=== PATIENT | male | born 2005 | race Caucasian/White ===

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

== ENCOUNTER 2023-02-20 12:10 | Inpatient (IN) | payer OTHER, SELFPAY ==
[2023-02-20] VITALS (43 sets, daily range): BP systolic 84–122; BP diastolic 47–87; PULSE 76–132; RESP 12–38; TEMP 36.4–37.1; O2SAT 95–100; BMI 22.2
--- NOTE | ~2023-02-20 | US_ITS ---
US abdomen limited DATE: 02/20/2023 16:49 INDICATION: Elevated liver function tests. Pericholecystic fluid on CT examination TECHNIQUE: Real-time imaging of liver, pancreas, gallbladder COMPARISON: 02/20/2023 CT chest abdomen pelvis FINDINGS: No hepatic space-occupying mass lesion is evident. Normal hepatopedal portal venous flow di rection. No pancreatic mass lesion. The common bile duct measures 3 mm, within normal range. There is mild pericholecystic fluid collection. The gallbladder wall measures borderline thickness. No gallstones are detected. Negative sonographic Caballero's sign. IMPRESSION: Mild pericholecystic fluid collection and borderline thickening of gallbladder wall If further evaluation to exclude acute cholecystitis is needed, consider radionuclide hepatobiliary s can Reviewed, dictated and finalized at [facility]. Reviewed, dictated and finalized at location [facility]. IMPRESSION: Mild pericholecystic fluid collection and borderline thickening of gallbladder wall If further evaluation to exclude acute cholecystitis is needed, consider radion uclide hepatobiliary scan
--- NOTE | ~2023-02-20 | CT_ITS ---
EXAMINATION: CT brain wo con DATE: 02/20/2023 14:38 INDICATION: Mental status change TECHNIQUE: Computed tomography (CT) of the head was performed without intravenous contrast. The mA wa s adjusted according to patient size. Iterative reconstruction technique was employed. Exam dose: 68 1.00 mGy-cm total exam DLP. COMPARISON: None FINDINGS: Examination is mildly limited by motion artifact. No intracranial mass lesion or hemorrhage or cerebrovascular accident or encephalomalacia is noted. N ormal castro-white matter differentiation. No midline shift or mass effect. Normal ventricular size. No subdural or epidural hematoma is detected. No fracture or bone destruction of the cranial vault. Mild soft tissue thickening the ethmoid air cells and minimal focal anterior right sphenoid sinus muc operiosteal thickening. Included paranasal sinuses and mastoid air cells are otherwise normally devel oped and aerated. IMPRESSION: No significant abnormality is detected Reviewed, dictated and finalized at [facility]. Reviewed, dictated and finalized at location [facility].
--- NOTE | ~2023-02-20 | CT_ITS ---
EXAMINATION: CT chest abdomen pelvis w con DATE: 02/20/2023 14:38 INDICATION: Sepsis TECHNIQUE: Computed tomography (CT) of the chest, abdomen and pelvis was performed with 100 CC Omnipa que 350 intravenous contrast. Automated exposure control and iterative reconstruction technique were employed. Exam dose: 939.07 mGy-cm total exam DLP. COMPARISON: None FINDINGS: Examination is limited by motion artifact. Bilateral calcified pulmonary granulomas and bilateral calcified hilar and mediastinal lymph nodes, c onsistent with old granulomatous disease. No pulmonary infiltrate or consolidation is evident. Cardiomegaly. No pericardial or pleural effusion. No hilar or mediastinal mass lesion or lymphadenopathy. Mild right gynecomastia is suggested. There is pericholecystic fluid. Consider gallbladder ultrasound examination. No bile duct or pancreatic duct dilatation is detected. Hepatic steatosis. No hepatic, splenic, pancreatic, and adrenal or renal space-occupying mass lesion is detected. No urinary tract calculus or hydroureteronephrosis. Numerous fluid containing small bowel segments with air-fluid levels. No small or large bowel dilatat ion or obstruction is evident. No pneumatosis. No intraperitoneal free air. There is a prominent amou nt of fecal material in the rectum and colon. Normal appendix. No suspicious osteolytic or osteoblastic lesions. IMPRESSION: Pericholecystic fluid; consider gallbladder ultrasound for further evaluation Hepatic steatosis Numerous small bowel air-fluid levels which may be due to adynamic ileus or enteritis Normal appendix Cardiomegaly Mild right gynecomastia is suggested Old pulmonary granulomatous disease Reviewed, dictated and finalized at [facility]. Reviewed, dictated and finalized at location [facility]. 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
--- NOTE | 2023-02-20 12:37 | ED.AMS ---
HPI - Altered Mental Status General Chief Complaint: Altered Mental Status Stated Complaint: unresponsive episode Time Seen by Provider: 02/20/23 12:36 History of Present Illness HPI narrative: History limited due to mental status, provided by mother at bedside. Patient is a 17-year-old male with history of polysubstance abuse including fentanyl, cocaine, marijuana use here with altered mental status. Mother states that she went to wake the patient up this morning and he would not wake up. She then administered intranasal Narcan with no improvement of his mental status. EMS was called and they administered additional Narcan with some mild improvement of mental status. She notes that prior to the administration of Narcan he was having sonorous respirations and this seemed to have improved after Narcan administration and he began moaning more. she does note that he had an inpatient rehab stent earlier this year primarily for opiates and they have been contacted for guarding him returning however he has not been interested up until this point. She does note that near him in the room they did find a large aerosolized with cream canister. Patient provides no history. Related Data Allergies Allergy/AdvReac Type Severity Reaction Status Date / Time No Known Allergies Allergy Verified 04/03/21 14:40 Review of Systems Review of Systems: ROS unobtainable: Yes unobtainable due to mental status PMFSH Social History Social History Smoking status: Never smoker Alcohol intake: never Exam Narrative: GENERAL: Ill appearing, moaning with exam HEAD: Normocephalic, atraumatic. EYES: PERRLA, 4mm, equal, reactive. ENT: Nares clear. Mucous membranes moist. NECK: Supple. CHEST: Clear to auscultation. Tachypneic. HEART: Regular rate and rhythm. Normal peripheral pulses. ABDOMEN: Soft, nontender, nondistended, moaning with palpation throughout abdomen. EXTREMITIES: Atraumatic, No edema. SKIN: Warm, dry, no rash. NEURO: Moaning, moves bilateral upper and lower extremities equally, no eye deviation. Will not participate in neurologic exam Course Course Emergency Course: Chart review performed. Patient here after unresponsive episode, given narcan by EMS. Last visit in our system was a PCP visit in 2020 noting history of ADHD, poor medication compliance. Triage vitals show tachycardic and tachypneic. Patient seen evaluated, he is obtunded, moans on exam however provides no history and does not participate neurologic exam. No focal deficits are appreciated as he moves all extremities equally. Will do a tox workup, CT head, AMS workup including ABG, IV fluids ordered. Will monitor. Protecting airway at this point with no respiratory distress. Patient more alert, conversive. Glucose returned in the 40s, attempted oral correction with juice however he vomited. Will give zofran and dextrose IV. Lab work and imaging reviewed. WBC elevated at 18.6. Anticipate this is most likely reactive however will add on blood cultures. CTs pending to look for possible source. VBG grossly normal. Creatinine elevated at 1.7, normal potassium. ALT elevated at 1820, AST 2279, bilirubin normal. Acetaminophen level normal. Troponin elevated at 1.980. UDS positive for cocaine and cannabinoids. Will order ASA. Awaiting imaging prior to initiating any possible heparinization. CT head negative. CT chest, abdomen, pelvis shows pericholycistic fluid. Will do RUQ ultrasound given elevated LFTs and WBC count. Dose of zosyn ordered. Patient more alert on exam, states he used fentanyl, cocaine, marijuana all over the last day. He denies any chest pain. Does have some diffuse abdominal tenderness on exam. Troponin uptrending, will discuss case with cardiology and start on heparin. Spoke with Dr. Willett, no additional recommendations. US non diagnostic for cholecystitis, if continued concern, can do HIDA. Spoke
--- NOTE | 2023-02-20 12:45 | ECG_ITS ---
Measurements Intervals [place] Rate: 119 P: 69 VA: 162 QRS: 80 QRSD: 95 T: 52 QT: 306 QTc: 431 Interpretive Statements SINUS TACHYCARDIA POSSIBLE RIGHT VENTRICULAR CONDUCTION DELAY [RSR (QR) IN V1/V2] ABNORMAL RHYTHM ECG NO PREVIOUS ECG AVAILABLE FOR COMPARISON Electronically Signed On 02-20-2023 13:36:34 CDT by Arden Harding MD
[2023-02-20] MEDS: SODIUM CHLORIDE 0.9% IV 1,000 ML 999 ML IV CONT ×3 (13:08→18:23)
[2023-02-20 13:17] LABS: Fractional Inspired Oxygen 21 %; HCO3 VBG 20.4 mEq/l (24.0-30.0); PCO2 VBG 41.7 mmHg (42.0-48.0); PO2 VBG 47.9 mmHg (35.0-45.0); pH VBG 7.308 (7.300-7.400)
[2023-02-20 13:19] LABS: Device ROOM AIR
[2023-02-20 13:23] LABS: Basophils Absolute Auto 0.1 K/mm3 (0.0-0.1); Basophils Percent Auto 0.3 % (0.2-1.2); Eosinophils Percent Auto 0.2 % (0-4.4); Hematocrit 42.7 % (42.0-52.0); Hemoglobin 14.2 g/dL (14.0-18.0); Immature Granulocyte Percent A 1.1 % (0-0.5); Lymphocytes Absolute Auto 1.16 K/mm3 (0.9-3.2); Lymphocytes Percent Auto 6.2 % (18.3-44.2); Mean Corpuscular HGB Conc 33.3 g/dl (32-36); Mean Corpuscular Hemoglobin 31.3 pg (26-34); Mean Corpuscular Volume 94.1 fl (80-100); Monocytes Absolute Auto 1.7 K/mm3 (0.1-0.6); Monocytes Percent Auto 8.9 % (2.6-8.5); Neutrophils Absolute Auto 15.5 K/mm3 (1.3-6.7); Neutrophils Percent Auto 83.3 % (45.5-73.1); Platelet Count Result 334 k/mm3 (150-375); Red Blood Count 4.54 M/mm3 (4.6-6.20); Red Cell Distribution Width 12.7 % (11.5-14.5); White Blood Count 18.6 K/mm3 (4.5-10.0)
[2023-02-20 13:32] LABS: Acetaminophen < 10 ug/mL (10-30); Ethanol < 10 mg/dL (<10); Salicylate < 1.0 mg/dL (2-20)
[2023-02-20 13:35] LABS: Albumin Level 4.6 g/dL (3.7-5.6); Alkaline Phosphatase 108 U/L (58-237); Anion Gap 13 mmol/L (8-16); Bilirubin,Total 0.6 mg/dL (0.2-1.3); Blood Urea Nitrogen 15 mg/dL (8-21); Calcium 8.4 mg/dL (8.9-10.7); Carbon Dioxide 23 mmol/L (22-30); Chloride 103 mmol/L (98-107); Creatine Kinase 270 U/L (55-170); Estimated Glomerular Filt Rate 52; Glucose 47 mg/dL (65-110); Potassium 4.2 mmol/L (3.4-5.0); Sodium 139 mmol/L (134-143)
[2023-02-20 13:39] LABS: INR 1.3; Prothrombin Time 16.6 Seconds (11.1-14.7)
[2023-02-20 13:48] LABS: Amphetamine Screen Urine Negative (Negative); Barbiturate Screen Urine Negative (Negative); Benzodiazepines Screen Urine Negative (Negative); Cannabinoid Screen Urine Positive (Negative); Cocaine Screen Urine Positive (Negative); Methadone Screen Urine Negative (Negative); Opiate Screen Urine Negative (Negative); Phencyclidine Screen Urine Negative (Negative)
[2023-02-20] MEDS: DEXTROSE 50% 25 GM/50 ML SYRINGE IV PUSH (13:49)
[2023-02-20] MEDS: ONDANSETRON INJ 4 MG/2 ML VIAL IV PUSH (13:50)
--- NOTE | 2023-02-20 13:50 | ECG_ITS ---
Measurements Intervals [place] Rate: 102 P: 70 UT: 148 QRS: 72 QRSD: 100 T: 40 QT: 337 QTc: 440 Interpretive Statements SINUS TACHYCARDIA OTHERWISE NORMAL ELECTROCARDIOGRAM COMPARED TO ECG 02/20/2023 12:17:40 NO SIGNIFICANT CHANGES Electronically Signed On 02-21-2023 8:45:21 CDT by Ke Willett M.D.
[2023-02-20 13:54] LABS: Alanine Aminotransferase 1820 U/L (6-50)
[2023-02-20 14:03] LABS: Appearance Urine Clear (Clear); Bacteria Urine None Seen /hpf; Bilirubin Urine Negative (Negative); Blood Urine 2+ (Negative); Color Urine Yellow (Yellow); Glucose Urine UA Negative (Negative); Ketones Urine Negative (Negative); Leukocyte Esterase Ur Negative LEU/UL (Negative); Need Manual Microscopic Reviewed; Nitrate Urine Negative (Negative); Protein Urine 2+ mg/dL (Negative); RBC Urine 0-2 /hpf (0-2); Specific Grav Ur 1.008 (1.001-1.035); Squamous Epithelial Cell Urine Occasional /hpf (Few); pH Urine 6.5 (5.0-9.0)
[2023-02-20 14:06] LABS: Aspartate Amino Transferase 2279 U/L (17-59)
[2023-02-20 14:06] LABS: Add Urine Microscopic? YES
[2023-02-20 14:55] LABS: Glucose Point of Care 130 mg/dl (65-105)
[2023-02-20] MEDS: PIPERACILLIN/TAZ 4.5G/NS 100ML 4.5 GM/100 ML BAG IVPB (16:44)
[2023-02-20 16:49] LABS: Glucose Point of Care 96 mg/dl (65-105)
[2023-02-20] MEDS: HEPARIN SODIUM 5,000 UNITS/ML VIAL 4000 UNITS IV PUSH (17:02)
[2023-02-20] MEDS: HEPARIN SOD/D5W 100 UNITS/ML 25,000 UNITS/250 ML BAG 9 UNITS IV CONT (17:03)
[2023-02-20 17:11] LABS: Hematocrit 45.2 % (42.0-52.0); Hemoglobin 14.9 g/dL (14.0-18.0); Mean Corpuscular Hemoglobin 31.2 pg (26-34); Mean Corpuscular Volume 94.8 fl (80-100); Mean Platelet Volume 10.1 fl (7.4-10.4); Platelet Count Result 305 k/mm3 (150-375); Red Blood Count 4.77 M/mm3 (4.6-6.20); Red Cell Distribution Width 12.8 % (11.5-14.5); White Blood Count 20.3 K/mm3 (4.5-10.0)
[2023-02-20 17:21] LABS: INR 1.4; Prothrombin Time 17.7 Seconds (11.1-14.7)
[2023-02-20 17:22] LABS: Partial Thromboplastin Time 28.4 SECONDS (22.3-36.8)
[2023-02-20 17:43] LABS: Lymphocytes Absolute Manual 2.03 K/mm3 (1.1-4.5); Monocytes Absolute Manual 1.62 K/mm3 (0.1-0.90); Monocytes Percent Manual 8 % (3-9); Neutrophils Percent Manual 82 % (46-73); Schistocytes None Seen (NORMAL); Total Cells Counted 100
[2023-02-20 17:43] LABS: Hepatitis B Surface Antigen Negative (Negative)
[2023-02-20 17:44] LABS: Platelet Estimate Adequate (Adequate)
[2023-02-20 17:48] LABS: HAV RESULT Negative (Negative); Hepatitis B Core IgM Result Negative (Negative)
[2023-02-20 18:00] LABS: Hepatitis C Virus Antibody Negative (Negative)
--- NOTE | 2023-02-20 20:44 | PM.IMHP ---
H&P: HPI History of Present Illness Date/Time: 02/20/23 20:44 Chief Complaint: OD Narrative: THIS IS A 17-YEAR-OLD MALE WITH PAST MEDICAL HISTORY SIGNIFICANT FOR COCAINE ABUSE, PATIENT WAS EXPERIMENTING WITH FENTANYL FOR THE 1ST TIME AND WAS FOUND DOWN BROUGHT TO THE EMERGENCY ROOM. AT THE TIME OF MY VISIT PATIENT WAS AWAKE ALERT HOWEVER WAS UNABLE TO PROVIDE ANY HISTORY IN REGARDS TO THESE EVENT HE WAS COMPLETELY OUT HAS NO RECOLLECTION REMEMBERS USING THE FENTANYL FOR 1ST TIME. ACCORDING TO RECORDS FROM THE EMERGENCY ROOM MOTHER FOUND HIM AND TRIED INTRANASAL NARCAN WITH NO MUCH RESPONSE EMS WAS CALLED AND 2ND DOSE OF NARCAN SHOWED MORE IMPROVEMENT PATIENT WAS BROUGHT TO THE EMERGENCY ROOM. PRELIMINARY WORKUP WAS SIGNIFICANT FOR ELEVATED LIVER ENZYMES, ELEVATED TROPONINS. EXAMINATION: CT brain wo con DATE: 02/20/2023 14:38 INDICATION: Mental status change TECHNIQUE: Computed tomography (CT) of the head was performed without intravenous contrast. The mA was adjusted according to patient size. Iterative reconstruction technique was employed. Exam dose:? 681.00 mGy-cm total exam DLP.? COMPARISON: None FINDINGS: Examination is mildly limited by motion artifact. No intracranial mass lesion or hemorrhage or cerebrovascular accident or encephalomalacia is noted. Normal castro-white matter differentiation. No midline shift or mass effect. Normal ventricular size. No subdural or epidural hematoma is detected. No fracture or bone destruction of the cranial vault. Mild soft tissue thickening the ethmoid air cells and minimal focal anterior right sphenoid sinus mucoperiosteal thickening. Included paranasal sinuses and mastoid air cells are otherwise normally developed and aerated. IMPRESSION:? No significant abnormality is detected EXAMINATION: CT chest abdomen pelvis w con DATE: 02/20/2023 14:38 INDICATION: Sepsis TECHNIQUE: Computed tomography (CT) of the chest, abdomen and pelvis was performed with 100 CC Omnipaque 350 intravenous contrast. Automated exposure control and iterative reconstruction technique were employed. Exam dose:? 939.07 mGy-cm total exam DLP.? COMPARISON: None FINDINGS: Examination is limited by motion artifact. Bilateral calcified pulmonary granulomas and bilateral calcified hilar and mediastinal lymph nodes, consistent with old granulomatous disease. No pulmonary infiltrate or consolidation is evident. Cardiomegaly. No pericardial or pleural effusion. No hilar or mediastinal mass lesion or lymphadenopathy. Mild right gynecomastia is suggested. There is pericholecystic fluid. Consider gallbladder ultrasound examination. No bile duct or pancreatic duct dilatation is detected. Hepatic steatosis. No hepatic, splenic, pancreatic, and adrenal or renal space-occupying mass lesion is detected. No urinary tract calculus or hydroureteronephrosis. Numerous fluid containing small bowel segments with air-fluid levels. No small or large bowel dilatation or obstruction is evident. No pneumatosis. No intraperitoneal free air. There is a prominent amount of fecal material in the rectum and colon. Normal appendix. No suspicious osteolytic or osteoblastic lesions. IMPRESSION:? Pericholecystic fluid; consider gallbladder ultrasound for further evaluation Hepatic steatosis Numerous small bowel air-fluid levels which may be due to adynamic ileus or enteritis Normal appendix Cardiomegaly Mild right gynecomastia is suggested Old pulmonary granulomatous disease US abdomen limited DATE: 02/20/2023 16:49 INDICATION: Elevated liver function tests. Pericholecystic fluid on CT examination? TECHNIQUE: Real-time imaging of liver, pancreas, gallbladder? COMPARISON: 02/20/2023 CT chest abdomen pelvis? FINDINGS: No hepatic space-occupying mass lesion is evident. Normal hepatopedal portal venous flow direction.? No pancreatic mass lesion.? The common bile duct measures 3 mm, within normal range. There is mild pericholecystic fluid col
--- NOTE | 2023-02-20 22:22 | ADMGEN ---
This patient, Kike Sears, was admitted to IMU Room 206-02. Patient/family oriented to hospital policies and general routines including ID bracelet, bed and alarms, visiting hours, pain management, procedures, bathroom and other care routines, personal items, smoking policy, room service/diet, and visiting hours. Information on how to activate the Rapid Response Team has been discussed. Patient/Family are encouraged to report perceived risks to care and to ask questions if they do not understand what they are told or what they should do.
[2023-02-21] VITALS (16 sets, daily range): BP systolic 94–114; BP diastolic 48–57; PULSE 76–105; RESP 16–20; TEMP 36.8–37.3; O2SAT 96–100
--- NOTE | 2023-02-21 | ECHO_ITS ---
Patient Info Name: Kike Sears Age: 17 years : 2005 Gender: Male Ht: 73 in Wt: 168 lbs BSA: 1.98 m2 HR: 95 bpm BP: 94 / 50 mmHg Heart Rhythm: Sinus Rhythm Technical Quality: Fair Exam Date: 02/21/2023 10:38 AM Exam Location: [facility] Pulmonary Exam Room: [facility] [place] Patient Status: Inpatient Admit Date: 02/20/2023 Staff Ordering Physician: Sherwin Johnson MD Ware Server: Ashely Carvalho RDCS Attending Provider: Ilda Porter DO Referring Physician: Alex CHU; Exam Type: CA echo doppler color flow Study Info Indications - elevated troponins hx/o polysubstance abuse Complete two-dimensional, color flow and Doppler transthoracic echocardiogram is performed. Summary 1. Complete two-dimensional, color flow and Doppler transthoracic echocardiogram is performed. 2. Normal right ventricular and left ventricular size with intact systolic function, no regional wall motion abnormalities. 3. Trileaflet aortic valve with nodular sclerosis of the right coronary cusp, no AI. Left Ventricle Left ventricular chamber dimension is normal. Left ventricular systolic function is normal, estimated at 65-70%. The left ventricular diastolic function is normal. Right Ventricle Right ventricular chamber dimension is normal. Left Atria Left atrial chamber dimension is normal. Right Atria Right atrial chamber dimension is normal. Aortic Valve The aortic valve is trileaflet. There is mild aortic valve sclerosis. Pulmonic Valve The pulmonic valve is normal. Mitral Valve The mitral valve has normal leaflets. Tricuspid Valve The tricuspid valve leaflets are normal. Pericardium/Pleural The pericardium appears normal. Aorta The aortic root size at the sinus of Valsalva is normal. Left Ventricular Outflow Tract Name Value Normal LVOT 2D LVOT Diameter 2.0 cm LVOT Doppler LVOT Peak Gradient 9 mmHg LVOT Mean Gradient 5 mmHg LVOT VTI 26 cm LVOT VTI/AV VTI Ratio 0.8 LVOT Stroke Volume 84 ml LVOT CO 20.0 l/min LVOT CI 10.1 l/min/m2 Pulmonic Valve Name Value Normal RVOT Doppler RVOT Peak Gradient 2 mmHg PV Doppler PV Peak Gradient 4 mmHg Mitral Valve Name Value Normal MV Doppler MV Decel [place] 618 cm/s2 MV PHT 57 ms MV Area (PHT) 3.9 cm2 4.0-5.0 MV Diastolic
[2023-02-21 00:15] LABS: Partial Thromboplastin Time 54.4 SECONDS (22.3-36.8)
[2023-02-21] MEDS: QUEtiapine FUMARATE 100 MG TABLET PO ×2 (00:41→21:16)
[2023-02-21] MEDS: HEPARIN SODIUM 5,000 UNITS/ML VIAL 4000 UNITS IV PUSH (00:41)
[2023-02-21 07:00] LABS: Basophils Percent Auto 0.2 % (0.2-1.2); Eosinophils Absolute Auto 0.1 K/mm3 (0-0.3); Eosinophils Percent Auto 0.4 % (0-4.4); Hematocrit 35.6 % (42.0-52.0); Hemoglobin 11.9 g/dL (14.0-18.0); Immature Granulocyte Absolute 0.04 K/mm3 (0.00-0.031); Immature Granulocyte Percent A 0.3 % (0-0.5); Lymphocytes Absolute Auto 4.04 K/mm3 (0.9-3.2); Lymphocytes Percent Auto 29.4 % (18.3-44.2); Mean Corpuscular HGB Conc 33.4 g/dl (32-36); Mean Corpuscular Hemoglobin 31.6 pg (26-34); Mean Corpuscular Volume 94.4 fl (80-100); Mean Platelet Volume 10.7 fl (7.4-10.4); Monocytes Absolute Auto 0.9 K/mm3 (0.1-0.6); Monocytes Percent Auto 6.3 % (2.6-8.5); Neutrophils Absolute Auto 8.7 K/mm3 (1.3-6.7); Neutrophils Percent Auto 63.4 % (45.5-73.1); Platelet Count Result 279 k/mm3 (150-375); Red Blood Count 3.77 M/mm3 (4.6-6.20); Red Cell Distribution Width 13.1 % (11.5-14.5); White Blood Count 13.7 K/mm3 (4.5-10.0)
[2023-02-21 07:09] LABS: Anion Gap 3 mmol/L (8-16); Blood Urea Nitrogen 12 mg/dL (8-21); Calcium 7.9 mg/dL (8.9-10.7); Carbon Dioxide 27 mmol/L (22-30); Chloride 106 mmol/L (98-107); Estimated CRCL calculation 114 ml/min; Estimated Glomerular Filt Rate > 60; Glucose 87 mg/dL (65-110); Potassium 3.8 mmol/L (3.4-5.0); Sodium 136 mmol/L (134-143)
[2023-02-21 07:13] LABS: Partial Thromboplastin Time 100.8 SECONDS (22.3-36.8)
[2023-02-21] MEDS: VENLAFAXINE HCL XR 37.5 MG CAP PO (09:50)
--- NOTE | 2023-02-21 10:51 | PM.CNCAR ---
Assessment and Plan Assessment and plan (1) Overdose of fentanyl: Code(s): T40.411A - Poisoning by fentanyl or fentanyl analogs, accidental (unintentional), initial encounter Status: Acute Plan 17-year-old white male appears to have a so-called type 2 myocardial infarction which I am sure is a result of hypoxemia and overdose of fentanyl. He has no real reason to think that he has premature coronary artery disease or that this troponin elevation represents plaque rupture/acute coronary syndrome. I do not have a good explanation as to why troponin levels were sampled in this side setting. He will have an echocardiogram done shortly S the hospitalists have already ordered that. If that does not show any ischemic wall motion abnormalities I do not believe there is any need to treat this type 2 infarction medically. I do not have any other specific cardiac recommendations at this time Ke Willett MD [facility] History of Present Illness History of Present Illness Consult date/time: 02/21/23 10:51 Reason For Visit: NSTEMI, hepatitis, polysubstance abuse Narrative: This is a 17-year-old patient I am seeing at the request of the hospitalist because of a troponin levels that have risen significantly out of normal range. The patient is not known to have any cardiac problems prior to this. He was brought to the emergency room yesterday evening by his family and by ambulance because of state of unresponsiveness. He has a history of polysubstance abuse and recently history of opioid abuse. He apparently had a fentanyl overdose receive some Narcan in the field some additional Narcan on route and was brought to emergency room for evaluation. For some reason in the emergency room troponin levels were sampled and they were elevated out of normal range and have risen to 3.9. The patient's electrocardiogram shows sinus tachycardia but no evidence of acute current of injury. An echocardiogram has been requested and will be done later according to the hospitalist orders. Patient's lab data also shows evidence of acute kidney injury as well as significantly elevated transaminases. The patient is responsive but does not wish to speak to me at the time of this consultation the entire history is obtained from his mother who is in the room over seeing him as well. His mother denies that he has any history of previous cardiac problems. Review of Systems Review of Systems: ROS unobtainable: Yes unobtainable due to mental status PMFSH Social History Social History Smoking status: Current every day smoker Tobacco type: e-cigarettes/vaping Alcohol intake: never Substance use: current Substance use type: marijuana, crack/cocaine and opiates Other substance usage details: pt. states he uses cocaine daily Last use: today 02/20/2023 Lack of Transportation: No Lack of Food: Never True Current Housing: I Have Housing Concerned About Future Housing: No Difficulty Paying Gas/Electric Bills: No Difficulty Paying for Meds: No Currently Unemployed: No Education: High School Diploma/GED Difficulty w/ Childcare or Family Care: No Spiritual care concerns: No Meds Home Medications and Allergies Home Medications Medication Instructions Recorded Confirmed Type quetiapine 100 mg tablet 100 mg PO QHS 02/20/23 02/20/23 History venlafaxine 37.5 mg 37.5 mg PO DAILY 02/20/23 02/20/23 History capsule,extended release 24 hr Allergies Allergy/AdvReac Type Severity Reaction Status Date / Time No Known Allergies Allergy Verified 04/03/21 14:40 Vital Signs Vital Signs - 24 hr 02/20/23 12:10 02/20/23 12:24 02/20/23 12:17 Temperature 36.4 C Pulse Rate 132 H 120 H 123 H Respiratory Rate 20 32 H 16 Blood Pressure 122/80 122/80 Pulse Oximetry 99 100 Oxygen Delivery Room Air 02/20/23 12:30 02/20/23 12:31 02/20/23 12:45 Temperature Pulse
[2023-02-21 13:14] LABS: Partial Thromboplastin Time 132.8 SECONDS (22.3-36.8)
--- NOTE | 2023-02-21 13:45 | PM.IMPN ---
Progress Note: A&P Assessment and Plan (1) Overdose of fentanyl: Code(s): T40.411A - Poisoning by fentanyl or fentanyl analogs, accidental (unintentional), initial encounter Status: Acute Assessment and Plan: PATIENT IS NOW AWAKE AND ALERT CRISIS INTERVENTION WILL BE CONSULTED (2) Acute non-ST elevation myocardial infarction (NSTEMI): Code(s): I21.4 - Non-ST elevation (NSTEMI) myocardial infarction Status: Acute Assessment and Plan: CONTINUE TO TREND TROPONIN CHEST PAIN-FREE EKG WITH NO CHANGES CARDIOLOGY CONSULT (3) Elevated LFTs: Code(s): R79.89 - Other specified abnormal findings of blood chemistry Status: Acute Assessment and Plan: CT ABDOMEN AND PELVIS REVIEWED RIGHT UPPER QUADRANT ULTRASOUND REVIEWED ACUTE HEPATITIS PANEL NEGATIVE CONTINUE TO TREND LFTS CONTINUE TO MONITOR (4) Polysubstance (excluding opioids) dependence, daily use: Code(s): F19.20 - Other psychoactive substance dependence, uncomplicated Status: Acute Assessment and Plan: PATIENT WAS ENCOURAGED CESSATION Subjective Date/time seen: 02/21/23 13:45 Interval history: No new complaint Exam Narrative: IN BED Const: General: comfortable, no acute distress, well developed, alert, awake and average body habitus Nutritional Appearance: average body habitus Orientation/consciousness: patient oriented x3 HENMT: Head: normal to inspection, normocephalic and atraumatic Ears: hearing grossly normal bilaterally Face/Nose/Sinus: normal facial exam Face and sinus: normal facial exam Eyes: General: appearance normal, both eyes and all related structures Pupils: Equal, round and reactive pupils present EOM: EOMs intact bilaterally Neck: Neck: full ROM, no lymphadenopathy and no JVD Thyroid: thyroid normal Lymphatic: no lymphadenopathy noted Resp: Effort & Inspection: normal respiratory effort and able to speak in complete sentences Auscultation: clear to auscultation bilaterally Cardio: Jugular venous distension: no JVD Rate: regular rate Rhythm: regular rhythm Heart sounds: S1 normal heart sound present and S2 normal heart sound present : General: Yes deferred Skin: Rashes: no rashes Wounds: no wounds Neuro: General: patient oriented x3 and CN's II-XI intact bilaterally Cranial nerves: Yes CN's II-XII intact bilaterally and Yes Equal, round and reactive pupils present Cognition (Neuro): normal cognition Speech: normal speech Gait exam (Neuro): Normal gait present Motor exam (neuro): 5/5 motor strength present throughout Sensory Exam: No Sensory deficit (Neuro) Extrem: General: normal to inspection, full ROM, no joint enlargement and no pedal edema Objective Data Vital Signs Vital Signs: Vital Signs - 24 hr 02/20/23 14:39 02/20/23 14:46 02/20/23 15:02 Temperature Pulse Rate 107 H 107 H 102 H Respiratory Rate 20 19 16 Blood Pressure 99/71 L 84/64 L 96/63 L Pulse Oximetry 97 98 98 Oxygen Delivery 02/20/23 15:31 02/20/23 15:46 02/20/23 15:47 Temperature Pulse Rate 100 98 99 Respiratory Rate 14 15 16 Blood Pressure 96/64 L 97/62 L Pulse Oximetry 98 98 98 Oxygen Delivery 02/20/23 16:36 02/20/23 16:43 02/20/23 16:45 Temperature Pulse Rate 95 88 Respiratory Rate 14 13 Blood Pressure 94/62 L Pulse Oximetry 100 99 98 Oxygen Delivery 02/20/23 17:00 02/20/23 17:19 02/20/23 19:43 Temperature Pulse Rate 102 H 98 90 Respiratory Rate 21 H 17 13 Blood Pressure 98/60 L Pulse Oximetry 100 100 97 Oxygen Delivery 02/20/23 17:49 02/20/23 18:11 02/20/23 18:15 Temperature Pulse Rate 87 95 97 Respiratory Rate 17 16 16 Blood Pressure Pulse Oximetry 98 99 100 Oxygen Delivery 02/20/23 18:16 02/20/23 18:30 02/20/23 18:31 Temperature Pulse Rate 90 98 96 Respiratory Rate 15 14 16 Blood Pressure 99/55 L 85/52 L Pulse Oximetry 100 98 98 Oxygen Delivery 02/20/23 18:45 02/20/23 18:46
--- NOTE | 2023-02-21 16:17 | WPDCN ---
Assessment and Plan Assessment and plan (1) Elevated LFTs: Code(s): R79.89 - Other specified abnormal findings of blood chemistry Status: Acute Assessment and Plan: Patient markedly elevated AST to 2079 and ALT to 1820 on admission. Alkaline phosphatase was normal at 108 and Total bili normal at 0.6. Gallbladder imaging on CT scan and ultrasound suggested possible thickening of the gallbladder wall with a small amount of pericholecystic fluid. I think these findings are likely reactive. Given his polysubstance abuse could be due to some toxin that he ingested which could cause liver dysfunction or possibly even liver failure. Other reason could be over from hypotension. He was not really cooperative with exam and did not which to be interviewed. In discussing the patient with the nurses they reported the patient is not complaining of any abdominal pain. Unfortunately liver function tests were not ordered this morning. We will need to see if his liver enzymes are trending upper or down. I have ordered liver enzymes to be performed now. If he continues to have markedly elevated AST and ALT be on the levels on admission then he may need evaluation by manager business banking and possible transfer. Acetaminophen level was normal and viral hepatitis panel was normal and so those etiologies have been ruled out. There is no need for further surgical evaluation. HPI Data of Consult Date/Time: 02/21/23 16:17 Requesting Physician: Ilda Porter DO Primary Care Provider: Charlie BetancourtMD Consult Narrative Reason for consult: Abnormal gallbladder and imaging and elevated liver enzymes Narrative: Kike Sears is a 17 year old male brought by EMS to the emergency room here at [facility] after being found at home by his mother unresponsive. Patient's history of illicit drug use and apparently after being given multiple doses of Narcan he became responsive enough to say that had taken within the last 24hours fentanyl, cocaine, and marijuana. General workup emergency room included serum chemistries which showed markedly liver enzymes. Imaging of the gallbladder showed possible thickening of the gallbladder wall a small amount of pericholecystic fluid but no gallstones. I have been asked to comment on the elevated liver enzymes and the gallbladder. Review of Systems Review of Systems: The remainder of the review of systems to include constitutional, HEENT, cardiovascular, respiratory, GI, , integumentary, musculoskeletal, endocrine, immunologic, hematologic, psychiatric, and neurologic are all negative except for which is mentioned above in the HPI. [facility] Social History Social History Smoking status: Current every day smoker Tobacco type: e-cigarettes/vaping Alcohol intake: never Substance use: current Substance use type: marijuana, crack/cocaine and opiates Other substance usage details: pt. states he uses cocaine daily Last use: today 02/20/2023 Lack of Transportation: No Lack of Food: Never True Current Housing: I Have Housing Concerned About Future Housing: No Difficulty Paying Gas/Electric Bills: No Difficulty Paying for Meds: No Currently Unemployed: No Education: High School Diploma/GED Difficulty w/ Childcare or Family Care: No Spiritual care concerns: No Meds Home Medications and Allergies Home Medications Medication Instructions Recorded Confirmed Type quetiapine 100 mg tablet 100 mg PO QHS 02/20/23 02/20/23 History venlafaxine 37.5 mg 37.5 mg PO DAILY 02/20/23 02/20/23 History capsule,extended release 24 hr Allergies Allergy/AdvReac Type Severity Reaction Status Date / Time No Known Allergies Allergy Verified 04/03/21 14:40 Vital Signs Vital Signs - 24 hr 02/20/23 16:36 02/20/23 16:43 02/20/23 16:45 Temperature Pulse Rate 95 88 Respiratory Rate 14 13 Blood Pres
[2023-02-21 17:32] LABS: Albumin Level 3.4 g/dL (3.7-5.6); Alkaline Phosphatase 103 U/L (58-237); Bilirubin,Total 0.6 mg/dL (0.2-1.3)
[2023-02-21 17:52] LABS: Alanine Aminotransferase 2359 U/L (6-50); Aspartate Amino Transferase 2531 U/L (17-59)
[2023-02-22] VITALS (14 sets, daily range): BP systolic 106–138; BP diastolic 59–80; PULSE 58–92; RESP 14–24; TEMP 36.1–37.3; O2SAT 96–100
[2023-02-22 04:36] LABS: Basophils Percent Auto 0.5 % (0.2-1.2); Eosinophils Absolute Auto 0.4 K/mm3 (0-0.3); Eosinophils Percent Auto 4.9 % (0-4.4); Hematocrit 39.7 % (42.0-52.0); Immature Granulocyte Absolute 0.02 K/mm3 (0.00-0.031); Immature Granulocyte Percent A 0.3 % (0-0.5); Lymphocytes Absolute Auto 2.71 K/mm3 (0.9-3.2); Lymphocytes Percent Auto 36.9 % (18.3-44.2); Mean Corpuscular HGB Conc 32.7 g/dl (32-36); Mean Corpuscular Hemoglobin 31.3 pg (26-34); Mean Corpuscular Volume 95.7 fl (80-100); Mean Platelet Volume 10.5 fl (7.4-10.4); Monocytes Absolute Auto 0.6 K/mm3 (0.1-0.6); Monocytes Percent Auto 7.6 % (2.6-8.5); Neutrophils Absolute Auto 3.7 K/mm3 (1.3-6.7); Neutrophils Percent Auto 49.8 % (45.5-73.1); Platelet Count Result 251 k/mm3 (150-375); Red Blood Count 4.15 M/mm3 (4.6-6.20); White Blood Count 7.4 K/mm3 (4.5-10.0)
[2023-02-22 05:27] LABS: Albumin Level 3.7 g/dL (3.7-5.6); Alkaline Phosphatase 100 U/L (58-237); Anion Gap 0 mmol/L (8-16); Bilirubin,Total 0.5 mg/dL (0.2-1.3); Blood Urea Nitrogen 11 mg/dL (8-21); Calcium 9.1 mg/dL (8.9-10.7); Carbon Dioxide 31 mmol/L (22-30); Chloride 106 mmol/L (98-107); Estimated CRCL calculation 158 ml/min; Estimated Glomerular Filt Rate > 60; Glucose 96 mg/dL (65-110); Potassium 4.5 mmol/L (3.4-5.0); Sodium 137 mmol/L (134-143)
[2023-02-22 05:37] LABS: Alanine Aminotransferase 2544 U/L (6-50); Aspartate Amino Transferase 1926 U/L (17-59)
[2023-02-22] MEDS: VENLAFAXINE HCL XR 37.5 MG CAP PO (09:45)
--- NOTE | 2023-02-22 10:10 | WPDGICN ---
Assessment and Plan Assessment and plan (1) Elevated LFTs: Code(s): R79.89 - Other specified abnormal findings of blood chemistry Status: Acute Assessment and Plan: Patient with elevated transaminases. AST and ALT approximately 2000 or higher. This is most suspicious for his illicit drug use. Alternatively, this could represent shock liver associated with hypotensive episode. Patient should be monitored after to ensure liver function persists. Will monitor protime which is a good measure of synthetic function of the liver. And continue to monitor LFTs. Strict avoidance toxic agents such as these opioids and other substance abuse agent should be discontinued. At present his bilirubin and alkaline phosphatase have remained normal. (2) Polysubstance (excluding opioids) dependence, daily use: Code(s): F19.20 - Other psychoactive substance dependence, uncomplicated Status: Acute Assessment and Plan: Patient will benefit from long-term abstinence of opioids. Substance abuse disorder may need to be addressed. He may benefit from a support group of some sort. GI Consult Note Consult date/time: 02/22/23 10:10 Reason for consult: Elevated transaminases HPI: Kike Sears is a 17 year old male I am asked to see at the request of the hospitalist service because of elevated LFTs. Patient apparently found unresponsive at home and taken to the emergency room. He was given a large amount and Narcan. He subsequently became arousable and admitted to inhalation of cocaine, fentanyl. He also apparently abuses marijuana and other unknown substances. Today he is quite drowsy and upon arousing I have asked him about his drug use. And he basically states that he takes all sorts of a various unspecified agents. He is not very specific in not willing to give specifics at this time. Patient speaks with clear sentences. He no longer appears obtunded. He denies any prior known history of liver disease or history of hepatitis. Family is with him at this time and they agree there is no known history of viral hepatitis within the family. No known history of jaundice or other liver problems. Family history otherwise noncontributory. Patient also being evaluated for elevated troponin laboratory values at this time. Review of Systems Review of Systems: Review of systems noncontributory. [facility] Social History Social History Smoking status: Current every day smoker Tobacco type: e-cigarettes/vaping Alcohol intake: never Substance use: current Substance use type: marijuana, crack/cocaine and opiates Other substance usage details: pt. states he uses cocaine daily Last use: today 02/20/2023 Lack of Transportation: No Lack of Food: Never True Current Housing: I Have Housing Concerned About Future Housing: No Difficulty Paying Gas/Electric Bills: No Difficulty Paying for Meds: No Currently Unemployed: No Education: High School Diploma/GED Difficulty w/ Childcare or Family Care: No Spiritual care concerns: No Meds Home Medications and Allergies Home Medications Medication Instructions Recorded Confirmed Type quetiapine 100 mg tablet 100 mg PO QHS 02/20/23 02/20/23 History venlafaxine 37.5 mg 37.5 mg PO DAILY 02/20/23 02/20/23 History capsule,extended release 24 hr Allergies Allergy/AdvReac Type Severity Reaction Status Date / Time No Known Allergies Allergy Verified 04/03/21 14:40 Vital Signs Vital Signs - 24 hr 02/21/23 11:51 02/21/23 16:00 02/21/23 12:00 Temperature 98.2 F 98.3 F Pulse Rate 96 82 Respiratory Rate 16 16 Blood Pressure 110/57 L 114/55 L Pulse Oximetry 96 96 Oxygen Delivery Room Air 02/21/23 16:00 02/21/23 12:00 02/21/23 14:00 Temperature Pulse Rate 93 76 Respiratory Rate Blood Pressure Pulse Oximetry Oxygen Delivery Room Air 02/21/23
[2023-02-22 10:39] LABS: INR 1.1; Prothrombin Time 14.5 Seconds (11.1-14.7)
[2023-02-22 11:19] LABS: Albumin Level 3.8 g/dL (3.7-5.6); Alkaline Phosphatase 93 U/L (58-237); Bilirubin,Total 0.6 mg/dL (0.2-1.3)
[2023-02-22 11:32] LABS: Alanine Aminotransferase 2653 U/L (6-50); Aspartate Amino Transferase 1829 U/L (17-59)
--- NOTE | 2023-02-22 11:47 | PM.PNGS ---
Progress Note: A&P Assessment and Plan (1) Elevated LFTs: Code(s): R79.89 - Other specified abnormal findings of blood chemistry Status: Acute Assessment and Plan: Patient had abnormal imaging his gallbladder which is likely reactive to acute liver injury from polysubstance abuse. Liver enzymes increased a little bit more yesterday but has plateaued this morning and is actually slowly decreasing. The acute insult to his liver will improve over time. There is no need for any further workup of his gallbladder. Surgery will sign off. Subjective Subjective Date/Time Seen: 02/22/23 11:47 Interval history: Patient is awake today and much more conversant. Mood seems very normal today. He denies any abdominal pain. Ate hamburger for lunch without any difficulty. Liver enzymes are plateauing and starting to slowly decrease. Exam GI: Other: Abdomen is soft and nondistended. Tenderness to palpation. Abdominal exam is benign. Objective Data Vital Signs Vital Signs: Vital Signs - 24 hr 02/21/23 11:51 02/21/23 16:00 02/21/23 12:00 Temperature 36.8 C 36.8 C Pulse Rate 96 82 Respiratory Rate 16 16 Blood Pressure 110/57 L 114/55 L Pulse Oximetry 96 96 Oxygen Delivery Room Air 02/21/23 16:00 02/21/23 12:00 02/21/23 14:00 Temperature Pulse Rate 93 76 Respiratory Rate Blood Pressure Pulse Oximetry Oxygen Delivery Room Air 02/21/23 16:00 02/21/23 18:00 02/21/23 19:41 Temperature 36.8 C Pulse Rate 80 81 84 Respiratory Rate 18 Blood Pressure 106/48 L Pulse Oximetry 96 Oxygen Delivery 02/21/23 20:00 02/21/23 20:00 02/21/23 22:00 Temperature Pulse Rate 82 91 Respiratory Rate Blood Pressure Pulse Oximetry 96 Oxygen Delivery Room Air 02/21/23 23:44 02/22/23 00:00 02/22/23 00:00 Temperature 36.8 C Pulse Rate 91 91 Respiratory Rate 18 Blood Pressure 110/56 L Pulse Oximetry 96 96 Oxygen Delivery Room Air 02/22/23 02:00 02/22/23 04:10 02/22/23 04:00 Temperature 37.3 C Pulse Rate 74 65 68 Respiratory Rate 18 Blood Pressure 106/66 Pulse Oximetry 96 Oxygen Delivery 02/22/23 04:00 02/21/23 21:34 02/22/23 06:00 Temperature Pulse Rate 72 Respiratory Rate Blood Pressure Pulse Oximetry 96 96 Oxygen Delivery Room Air Room Air 02/22/23 08:00 Temperature 36.6 C Pulse Rate 58 L Respiratory Rate 16 Blood Pressure 114/59 L Pulse Oximetry 100 Oxygen Delivery Intake/Output Intake/Output: Intake & Output 02/19/23 02/20/23 02/21/23 02/22/23 23:59 23:59 23:59 23:59 Intake Total 3100 2910 600 Output Total 4400 1200 Balance 3100 -1490 -600 Meds/Results Medications: Active Medications Generic Name Dose Route Start Last Admin Trade Name Freq PRN Reason Stop Dose Admin Perflutren Lipid Microsphere 0 ml 02/21/23 00:17 Perflutren Lipid Microspheres 1.5 Ml Vial Diluted To 10 Ml Total Volume IV PUSH 02/24/23 00:17 ONCE PRN adequate visualization Protocol Quetiapine Fumarate 100 mg 02/21/23 00:20 02/21/23 21:16 Quetiapine Fumarate 100 Mg Tablet PO 100 mg QHS MOIRA Administration Venlafaxine HCl 37.5 mg 02/21/23 08:00 02/21/23 09:50 Venlafaxine Hcl Xr 37.5 Mg Cap PO 37.5 mg DAILY@0800 MOIRA Administration Radiology Results: ITS Impressions Head CT 02/20/23 14:46 IMPRESSION: No significant abnormality is detected Chest/Abdomen/Pelvis CT 02/20/23 15:07 IMPRESSION: Pericholecystic fluid; consider gallbladder ultrasound for further evaluation Hepatic steatosis Numerous small bowel air-fluid levels which may be due to adynamic ileus or enteritis Normal appendix Cardiomegaly Mild right gynecomastia is suggested Old pulmonary granulomatous disease Abdomen Ultrasound 02/20/23 16:50 IMPRESSION: Mild pericholecystic fluid collection and borderline thickening of gallbladder wall If further evaluation to exclude
--- NOTE | 2023-02-22 11:51 | PM.IMPN ---
Progress Note: A&P Assessment and Plan (1) Overdose of fentanyl: Code(s): T40.411A - Poisoning by fentanyl or fentanyl analogs, accidental (unintentional), initial encounter Status: Acute Assessment and Plan: PATIENT IS NOW AWAKE AND ALERT CRISIS INTERVENTION WILL BE CONSULTED (2) Acute non-ST elevation myocardial infarction (NSTEMI): Code(s): I21.4 - Non-ST elevation (NSTEMI) myocardial infarction Status: Acute Assessment and Plan: CONTINUE TO TREND TROPONIN CHEST PAIN-FREE EKG WITH NO CHANGES CARDIOLOGY CONSULT (3) Elevated LFTs: Code(s): R79.89 - Other specified abnormal findings of blood chemistry Status: Acute Assessment and Plan: CT ABDOMEN AND PELVIS REVIEWED RIGHT UPPER QUADRANT ULTRASOUND REVIEWED ACUTE HEPATITIS PANEL NEGATIVE CONTINUE TO TREND LFTS CONTINUE TO MONITOR (4) Polysubstance (excluding opioids) dependence, daily use: Code(s): F19.20 - Other psychoactive substance dependence, uncomplicated Status: Acute Assessment and Plan: PATIENT WAS ENCOURAGED CESSATION Subjective Date/time seen: 02/22/23 11:51 Interval history: No complaint Exam Narrative: IN BED Const: General: comfortable, no acute distress, well developed, alert, awake and average body habitus Nutritional Appearance: average body habitus Orientation/consciousness: patient oriented x3 HENMT: Head: normal to inspection, normocephalic and atraumatic Ears: hearing grossly normal bilaterally Face/Nose/Sinus: normal facial exam Face and sinus: normal facial exam Eyes: General: appearance normal, both eyes and all related structures Pupils: Equal, round and reactive pupils present EOM: EOMs intact bilaterally Neck: Neck: full ROM, no lymphadenopathy and no JVD Thyroid: thyroid normal Lymphatic: no lymphadenopathy noted Resp: Effort & Inspection: normal respiratory effort and able to speak in complete sentences Auscultation: clear to auscultation bilaterally Cardio: Jugular venous distension: no JVD Rate: regular rate Rhythm: regular rhythm Heart sounds: S1 normal heart sound present and S2 normal heart sound present : General: Yes deferred Skin: Rashes: no rashes Wounds: no wounds Neuro: General: patient oriented x3 and CN's II-XI intact bilaterally Cranial nerves: Yes CN's II-XII intact bilaterally and Yes Equal, round and reactive pupils present Cognition (Neuro): normal cognition Speech: normal speech Gait exam (Neuro): Normal gait present Motor exam (neuro): 5/5 motor strength present throughout Sensory Exam: No Sensory deficit (Neuro) Extrem: General: normal to inspection, full ROM, no joint enlargement and no pedal edema Objective Data Vital Signs Vital Signs: Vital Signs - 24 hr 02/21/23 16:00 02/21/23 12:00 02/21/23 16:00 Temperature 98.3 F Pulse Rate 82 Respiratory Rate 16 Blood Pressure 114/55 L Pulse Oximetry 96 Oxygen Delivery Room Air Room Air 02/21/23 12:00 02/21/23 14:00 02/21/23 16:00 Temperature Pulse Rate 93 76 80 Respiratory Rate Blood Pressure Pulse Oximetry Oxygen Delivery 02/21/23 18:00 02/21/23 19:41 02/21/23 20:00 Temperature 98.3 F Pulse Rate 81 84 82 Respiratory Rate 18 Blood Pressure 106/48 L Pulse Oximetry 96 Oxygen Delivery 02/21/23 20:00 02/21/23 22:00 02/21/23 23:44 Temperature 98.3 F Pulse Rate 91 91 Respiratory Rate 18 Blood Pressure 110/56 L Pulse Oximetry 96 96 Oxygen Delivery Room Air 02/22/23 00:00 02/22/23 00:00 02/22/23 02:00 Temperature Pulse Rate 91 74 Respiratory Rate Blood Pressure Pulse Oximetry 96 Oxygen Delivery Room Air 02/22/23 04:10 02/22/23 04:00 02/22/23 04:00 Temperature 99.1 F Pulse Rate 65 68 Respiratory Rate 18 Blood Pressure 106/66 Pulse Oximetry 96 96 Oxygen Delivery Room Air 02/21/23 21:34 02/22/23 06:00 02/22/23 08:00 Temperature 97.9 F Pulse Rate
[2023-02-22] MEDS: DEXTROSE 5%/0.9% SOD CHL 1,000 ML 75 ML IV CONT (13:39)
[2023-02-22] MEDS: QUEtiapine FUMARATE 100 MG TABLET PO (20:40)
--- NOTE | 2023-02-22 21:31 | PC.NURSE ---
This patient, Kike Sears, was transferred to [[id number] ] on 02/22/23 at 2132. Personal belongings sent with patient. Report given to [ Reji rn]. Appropriate documentation sent with patient.
--- NOTE | 2023-02-22 21:35 | PC.NURSE ---
Received pt from IMU on , received report from [facility] with no further questions.
[2023-02-23] VITALS: BP 121/62; PULSE 58; RESP 16; TEMP 36.7; O2SAT 97
[2023-02-23] MEDS: DEXTROSE 5%/0.9% SOD CHL 1,000 ML 75 ML IV CONT (03:10)
[2023-02-23 05:16] VITALS: BP 125/77; PULSE 51; RESP 18; TEMP 36.1; O2SAT 100
[2023-02-23 05:27] LABS: Basophils Percent Auto 0.5 % (0.2-1.2); Eosinophils Absolute Auto 0.5 K/mm3 (0-0.3); Eosinophils Percent Auto 5.9 % (0-4.4); Hematocrit 42.1 % (42.0-52.0); Hemoglobin 14.3 g/dL (14.0-18.0); Immature Granulocyte Absolute 0.03 K/mm3 (0.00-0.031); Immature Granulocyte Percent A 0.4 % (0-0.5); Lymphocytes Absolute Auto 2.55 K/mm3 (0.9-3.2); Lymphocytes Percent Auto 30.5 % (18.3-44.2); Mean Corpuscular Hemoglobin 31.4 pg (26-34); Mean Corpuscular Volume 92.3 fl (80-100); Mean Platelet Volume 10.2 fl (7.4-10.4); Monocytes Absolute Auto 0.6 K/mm3 (0.1-0.6); Monocytes Percent Auto 7.3 % (2.6-8.5); Neutrophils Absolute Auto 4.6 K/mm3 (1.3-6.7); Neutrophils Percent Auto 55.4 % (45.5-73.1); Platelet Count Result 257 k/mm3 (150-375); Red Blood Count 4.56 M/mm3 (4.6-6.20); Red Cell Distribution Width 12.6 % (11.5-14.5); White Blood Count 8.4 K/mm3 (4.5-10.0)
[2023-02-23 05:47] LABS: Alkaline Phosphatase 93 U/L (58-237); Anion Gap 4 mmol/L (8-16); Bilirubin,Total 0.7 mg/dL (0.2-1.3); Blood Urea Nitrogen 10 mg/dL (8-21); Calcium 9.3 mg/dL (8.9-10.7); Carbon Dioxide 28 mmol/L (22-30); Chloride 106 mmol/L (98-107); Estimated CRCL calculation 153 ml/min; Estimated Glomerular Filt Rate > 60; Glucose 103 mg/dL (65-110); Potassium 4.1 mmol/L (3.4-5.0); Sodium 138 mmol/L (134-143)
[2023-02-23 06:00] LABS: Alanine Aminotransferase 2144 U/L (6-50); Aspartate Amino Transferase 930 U/L (17-59)
[2023-02-23 07:41] VITALS: BP 124/81; PULSE 57; RESP 17; TEMP 36.1; O2SAT 99
[2023-02-23] MEDS: VENLAFAXINE HCL XR 37.5 MG CAP PO (08:03)
[2023-02-23 08:06] VITALS: RESP 18; O2SAT 99
--- NOTE | 2023-02-23 10:28 | PM.DS ---
DS: Admitting Diagnosis Discharge Date July 21, 2022 Admitting Diagnosis Acute drug overdose, unintentional DS: Discharge Diagnosis Discharge Diagnosis (1) Overdose of fentanyl: Code(s): T40.411A - Poisoning by fentanyl or fentanyl analogs, accidental (unintentional), initial encounter Status: Acute Assessment and Plan: PATIENT IS NOW AWAKE AND ALERT CRISIS INTERVENTION WILL BE CONSULTED (2) Acute non-ST elevation myocardial infarction (NSTEMI): Code(s): I21.4 - Non-ST elevation (NSTEMI) myocardial infarction Status: Acute Assessment and Plan: CONTINUE TO TREND TROPONIN CHEST PAIN-FREE EKG WITH NO CHANGES CARDIOLOGY CONSULT (3) Elevated LFTs: Code(s): R79.89 - Other specified abnormal findings of blood chemistry Status: Acute Assessment and Plan: CT ABDOMEN AND PELVIS REVIEWED RIGHT UPPER QUADRANT ULTRASOUND REVIEWED ACUTE HEPATITIS PANEL NEGATIVE CONTINUE TO TREND LFTS CONTINUE TO MONITOR (4) Polysubstance (excluding opioids) dependence, daily use: Code(s): F19.20 - Other psychoactive substance dependence, uncomplicated Status: Acute Assessment and Plan: PATIENT WAS ENCOURAGED CESSATION DS: Summary Hospital Course Hospital Course: Patient had an acute overdose of fentanyl. Drug screen for opiates was negative. Likely this drug was laced with something else. He likely had a unresponsive episode after his acute use. He had elevated liver enzymes likely from shock liver or from the actual drug itself. Patient also had non ST elevation IN likely related to the same event. Cardiology surgery and GI overall consulted. No further indication for any procedure at this time. Patient is improving slowly and can be discharged. Recommended cessation from all drug and alcohol use. Time Spent with Patient Time attestation: Total time spent providing and/or coordinating discharge services: Exam Narrative: IN BED Const: General: comfortable, no acute distress, well developed, alert, awake and average body habitus Nutritional Appearance: average body habitus Orientation/consciousness: patient oriented x3 HENMT: Head: normal to inspection, normocephalic and atraumatic Ears: hearing grossly normal bilaterally Face/Nose/Sinus: normal facial exam Face and sinus: normal facial exam Eyes: General: appearance normal, both eyes and all related structures Pupils: Equal, round and reactive pupils present EOM: EOMs intact bilaterally Neck: Neck: full ROM, no lymphadenopathy and no JVD Thyroid: thyroid normal Lymphatic: no lymphadenopathy noted Resp: Effort & Inspection: normal respiratory effort and able to speak in complete sentences Auscultation: clear to auscultation bilaterally Cardio: Jugular venous distension: no JVD Rate: regular rate Rhythm: regular rhythm Heart sounds: S1 normal heart sound present and S2 normal heart sound present : General: Yes deferred Skin: Rashes: no rashes Wounds: no wounds Neuro: General: patient oriented x3 and CN's II-XI intact bilaterally Cranial nerves: Yes CN's II-XII intact bilaterally and Yes Equal, round and reactive pupils present Cognition (Neuro): normal cognition Speech: normal speech Gait exam (Neuro): Normal gait present Motor exam (neuro): 5/5 motor strength present throughout Sensory Exam: No Sensory deficit (Neuro) Extrem: General: normal to inspection, full ROM, no joint enlargement and no pedal edema DS: Data Data Completed and Pending Labs on day of discharge: Labs from last 24 hours 02/23/23 02/22/23 05:12 10:13 WBC 8.4 RBC 4.56 L Hgb 14.3 Hct 42.1 MCV 92.3 MCH 31.4 MCHC 34.0 RDW 12.6 Plt Count 257 MPV 10.2 Immature Gran % (Auto) 0.4 Neut % (Auto) 55.4 Lymph % (Auto) 30.5 Converse % (Auto) 7.3 Eos % (Auto) 5.9 H Baso % (Auto) 0.5 Lymph # (Auto) 2.55 [place]verse # (Auto) 0.6 Eos # (Auto) 0.5 H Baso # (Auto) 0.0 Abs Immat Gran (au
[2023-02-23 11:57] VITALS: BP 129/76; PULSE 70; RESP 16; TEMP 37.1; O2SAT 98
[2023-02-23 12:00] VITALS: BP 129/76; PULSE 70; RESP 16; TEMP 37.1; O2SAT 98
--- NOTE | 2023-02-23 12:27 | WPDGIPROGNO ---
Progress Note: A&P Assessment and Plan (1) Polysubstance (excluding opioids) dependence, daily use: Code(s): F19.20 - Other psychoactive substance dependence, uncomplicated Status: Acute Assessment and Plan: Patient will need abstinence from these substance abuse products. (2) Elevated LFTs: Code(s): R79.89 - Other specified abnormal findings of blood chemistry Status: Acute Assessment and Plan: Patient with markedly elevated serum transaminases. Appeared to be a toxic injury from his polysubstance abuse. Alternatively may have been secondary to shock liver if he had hypotensive episode. Plan for conservative therapy. Monitor LFTs. Advance to regular diet. No additional therapy felt warranted at present. Subjective Date/time seen: 02/23/23 12:27 Interval history: Patient alert comfortable this morning. Tolerating diet. Denies abdominal pain. Review of Systems Review of Systems: Review of systems noncontributory. Exam Narrative: Physical exam reveals patient to be alert vital signs stable. Oriented x3. HEENT exam reveals no icterus. Lungs are clear to auscultation and percussion. Heart is without murmur. Abdomen bowel sounds present soft nontender with no organomegaly. Objective Data Vital Signs Vital Signs: Vital Signs - 24 hr 02/22/23 14:00 02/22/23 15:56 02/22/23 16:00 Temperature 98.6 F Pulse Rate 70 66 Respiratory Rate 24 H Blood Pressure 127/80 Pulse Oximetry 96 98 Oxygen Delivery Room Air 02/22/23 19:35 02/22/23 20:00 02/22/23 21:36 Temperature 97.0 F L 98.4 F Pulse Rate 71 92 64 Respiratory Rate 18 18 14 Blood Pressure 138/75 131/69 Pulse Oximetry 99 99 100 Oxygen Delivery Room Air 02/22/23 21:41 02/23/23 00:00 02/23/23 05:16 Temperature 98.0 F 97 F L Pulse Rate 58 L 51 L Respiratory Rate 16 18 Blood Pressure 121/62 125/77 Pulse Oximetry 97 100 Oxygen Delivery Room Air 02/23/23 07:41 02/23/23 08:06 02/23/23 11:57 Temperature 96.9 F L 98.7 F Pulse Rate 57 L 70 Respiratory Rate 17 18 16 Blood Pressure 124/81 129/76 Pulse Oximetry 99 99 98 Oxygen Delivery Room Air Intake/Output Intake/Output: Intake & Output 02/20/23 02/21/23 02/22/23 02/23/23 23:59 23:59 23:59 23:59 Intake Total 3100 2910 1860 1480 Output Total 4400 1900 Balance 3100 -1490 -40 1480 Meds/Results Medications: Active Medications Generic Name Dose Route Start Last Admin Trade Name Freq PRN Reason Stop Dose Admin Dextrose/Sodium Chloride 1,000 mls @ 75 mls/hr 02/22/23 11:55 02/23/23 11:37 Dextrose 5% Sodium Chloride 0.9% IV CONT 75 mls/hr .[id number] MOIRA Infusion Perflutren Lipid Microsphere 0 ml 02/21/23 00:17 Perflutren Lipid Microspheres 1.5 Ml Vial Diluted To 10 Ml Total Volume IV PUSH 02/24/23 00:17 ONCE PRN adequate visualization Protocol Quetiapine Fumarate 100 mg 02/21/23 00:20 02/22/23 20:40 Quetiapine Fumarate 100 Mg Tablet PO 100 mg QHS MOIRA Administration Venlafaxine HCl 37.5 mg 02/21/23 08:00 02/23/23 08:03 Venlafaxine Hcl Xr 37.5 Mg Cap PO 37.5 mg DAILY@0800 MOIRA Administration Radiology Results: ITS Impressions Head CT 02/20/23 14:46 IMPRESSION: No significant abnormality is detected Chest/Abdomen/Pelvis CT 02/20/23 15:07 IMPRESSION: Pericholecystic fluid; consider gallbladder ultrasound for further evaluation Hepatic steatosis Numerous small bowel air-fluid levels which may be due to adynamic ileus or enteritis Normal appendix Cardiomegaly Mild right gynecomastia is suggested Old pulmonary granulomatous disease Abdomen Ultrasound 02/20/23 16:50 IMPRESSION: Mild pericholecystic fluid collection and borderline thickening of gallbladder wall If further evaluation to exclude acute cholecystitis is needed, consider radionuclide hepatobiliary scan Labs Labs: Laboratory Results - last 24 h
--- NOTE | 2023-02-23 16:26 | PC.NURSE ---
Assessment, care and medications performed by Tyler Velazquez JIM Student RN under supervision of instructor and hospital staff. Assessment reviewed and agree with same.
== END 2023-02-23 15:50 | disposition home or self-care (01) | DRG 917 ==
LOC: ANHED 18:03 → ANHIMU 19:00 → ANH2MED 02-22 21:29
PROVIDERS: Internal Medicine; Internal Medicine Gastroenterology; Surgery; Admitting Provider Student in an Organized Health Care Education/Training Program; Emergency Provider Student in an Organized Health Care Education/Training Program; PCP Hospitalist; Visit Provider Chiropractor
DX: T40.411A Poisoning by fentanyl or fentanyl analogs, accidental (unintentional), initial encounter (principal); I21.A1 Myocardial infarction type 2; F19.20 Other psychoactive substance dependence, uncomplicated; F14.10 Cocaine abuse, uncomplicated; F17.290 Nicotine dependence, other tobacco product, uncomplicated; R79.89 Other specified abnormal findings of blood chemistry; Z28.21 Immunization not carried out because of patient refusal
CPT/HCPCS: 36415; 70450; 71260; 74177; 76705; 80048; 80053; 80074; 80076; 80307; 81001; 82550; 82803; 82948; 84443; 84484; 85025; 85610; 85730; 87040; 87086; 93005; 93306; 96361; 96365; 96367; 96375; 99285; A9270; J1644; J2405; J2543; J7030; J7042; Q9967

== ENCOUNTER 2023-05-19 07:21 | Inpatient (IN) | payer OTHER, SELFPAY ==
[2023-05-19] VITALS (33 sets, daily range): BP systolic 73–118; BP diastolic 46–85; PULSE 86–128; RESP 10–26; TEMP 36.1–37.2; O2SAT 76–100; BMI 24.8
--- NOTE | ~2023-05-19 | CT_ITS ---
EXAMINATION: CTA chest abdomen pelvis DATE: 05/19/2023 11:25 INDICATION: Possible thoracic aortic abnormality on noncontrast CT chest examination of 05/19/2023 TECHNIQUE: Computed tomography (CT) of the chest, abdomen, and pelvis was performed with 100 CC Omnip aque 350 intravenous contrast. Automated exposure control and iterative reconstruction technique were employed. Exam dose: 986.06 mGy-cm total exam DLP. COMPARISON: 05/19/2023 CTA chest abdomen pelvis 05/19/2023 portable AP chest FINDINGS: CHEST CT: With benefit of sagittal and coronal reconstructions on this post-IV contrast CT examinatio n, the thoracic and abdominal aorta are demonstrated to be of normal caliber, without evidence of hem atoma, dissection or aneurysm. Cardiomegaly. Bilateral predominantly dependent lower lobe infiltrates, right greater than left, suggesting aspirat ion pneumonitis, particularly given the history of overdose. ABDOMEN/PELVIS CT: No hepatic, splenic, pancreatic, and adrenal or renal space-occupying mass lesion or hydroureteroneph rosis is evident. No intraperitoneal or retroperitoneal or pelvic mass lesion or adenopathy or ascite s. Normal appendix. Prominent amount fecal material in the rectum. No bowel obstruction or intraperitone al free air is detected. IMPRESSION: No thoracic or abdominal aortic aneurysm, dissection or hematoma Reviewed, dictated and finalized at [facility]. Reviewed, dictated and finalized at location [facility]. NT SUCCESS MANAGER
--- NOTE | ~2023-05-19 | XR_ITS ---
XR chest 1V portable DATE: 05/19/2023 08:49 INDICATION: Sepsis TECHNIQUE: Portable supine AP chest on 05/19/2023 at 0844 hours COMPARISON: 02/20/2023 CT chest abdomen FINDINGS: Cardiomegaly. There is pulmonary vascular redistribution suggesting pulmonary venous hypert ension, with mild patchy bilateral pulmonary infiltrates which are more prominent centrally, suggesti ng pulmonary edema; pneumonia is not excluded. No pleural effusion is evident. No pneumothorax. IMPRESSION: Cardiomegaly, pulmonary vascular congestion/redistribution and mild patchy bilateral pulm onary infiltrates, suggesting congestive changes, pulmonary edema. Pneumonia is not excluded. Reviewed, dictated and finalized at location [facility]. E TANK OPERATOR IMPRESSION: Cardiomegaly, pulmonary vascular congestion/redistribution and mild patchy bilateral pulmonary infiltrates, suggesting congestive changes, pulmona ry edema. Pneumonia is not excluded.
--- NOTE | ~2023-05-19 | CT_ITS ---
EXAMINATION: CT chest abdomen pelvis wo con DATE: 05/19/2023 10:33 INDICATION: Pneumonia. Renal calculus. Overdose. TECHNIQUE: Computed tomography (CT) of the chest, abdomen, and pelvis was performed without intraveno us contrast. Automated exposure control and iterative reconstruction technique were employed. Exam do se: 1070.19 mGy-cm total exam DLP. COMPARISON: 05/19/2023 portable AP chest FINDINGS: CHEST CT: Minimal bilateral gynecomastia. There is infiltrate and/atelectasis primarily involving the dependent lower lobes, right greater than left, suggesting aspiration pneumonitis, particularly given the history of overdose. Bilateral pneum onia is a consideration as well. Cardiomegaly. The ascending aorta and anterior aspect of the aortic arch appear more prominent in caliber than the posterior aortic arch and descending thoracic aorta. There is minimal fluid adjacent to the ascending aorta and anterior aortic arch. Consider thoracic aortic evaluation with IV contrast material. No pericardial or pleural effusion. There are calcified right paratracheal, subcarinal and bilateral hilar nodes and bilateral calcified pulmonary granulomas consistent with old pulmonary granulomatous disease.. ABDOMEN/PELVIS CT: Nonspecific mild pericholecystic fluid. Consider gallbladder ultrasound. Minimal superior perihepatic fluid. No hepatic, splenic, pancreatic, adrenal or renal space-occupying mass lesion is evident on this limited noncontrast examination. No bile duct or pancreatic duct dilatation. Normal caliber of the abdominal aorta. No intraperitoneal or retroperitoneal or pelvic mass lesion or adenopathy is noted. There is a prominent amount of fecal material within the colon or rectum. No derrick wel obstruction, bowel wall thickening, pneumatosis or intraperitoneal free air. Normal appendix. Small gas bubble is noted in the nondependent urinary bladder. No bladder wall thickening or inflamma tory stranding around the urinary bladder. The prostate gland is unremarkable. Very small fat-containing umbilical hernia. IMPRESSION: Bilateral predominantly dependent lower lobe infiltrates, right greater than left, sugge sting aspiration pneumonitis, particularly given the history of overdose. Pneumonia is not excluded. Cardiomegaly Discrepancy in size of ascending aorta and anterior arch versus posterior aortic arch and descending thoracic aorta; consider aortic evaluation, possibly with CT thoracic aortic examination with IV cont rast material. Old pulmonary granulomatous disease Nonspecific mild perihepatic and pericholecystic fluid Reviewed, dictated and finalized at [facility]. Reviewed, dictated and finalized at location [facility]. EMERGING MEDIA IMPRESSION: Bilateral predominantly dependent lower lobe infiltrates, right gr eater than left, suggesting aspiration pneumonitis, particularly given the hist ory of overdose. Pneumonia is not excluded. Cardiomegaly Discrepancy in size of ascending aorta and anterior arch versus posterior aorti c arch and descending thoracic aorta; consider aortic evaluation, possibly with CT thoracic aortic examination with IV contrast material. Old pulmonary granulomatous disease Nonspecific mild perihepatic and pericholecystic fluid
[2023-05-19] MEDS: DEXTROSE 50% 25 GM/50 ML SYRINGE ×2 (07:23→08:08)
--- NOTE | 2023-05-19 07:23 | ED.OVERDOSE ---
HPI - Overdose General Chief Complaint: Overdose Stated Complaint: overdose Time Seen by Provider: 05/19/23 07:23 History of Present Illness HPI Narrative: Patient is a 17-year-old male who presents to the emergency department this morning via EMS to concern for overdose. EMS states the patient recently got out of rehab facility secondary to history of heroin abuse and coughing. Today mother heard the patient downstairs moaning and screaming and she then called EMS and patient was brought to our facility for further evaluation. EMS did administer Narcan with improvement of the patient's mentation and bleeding patient is currently is in no respiratory distress. Patient's point of care glucose was found be flu and he was administered oral glucose and no hyphae was obtained at this time. Patient will answer her some questions by nodding but otherwise is not verbally answer any questions. He is following minimal commands. the remainder history of present illness and review of system is limited secondary to patient's current condition. Related Data Home Medications Medication Instructions Recorded Confirmed quetiapine 100 mg tablet 100 mg PO QHS 02/20/23 02/20/23 venlafaxine 37.5 mg 37.5 mg PO DAILY 02/20/23 02/20/23 capsule,extended release 24 hr Allergies Allergy/AdvReac Type Severity Reaction Status Date / Time No Known Allergies Allergy Verified 04/03/21 14:40 Review of Systems Review of Systems: Unable to obtain a full ROS secondary to patient current condition. PMFSH Social History Social History Smoking status: Current every day smoker Tobacco type: e-cigarettes/vaping Alcohol intake: never Substance use: current Substance use type: marijuana, crack/cocaine and opiates Other substance usage details: pt. states he uses cocaine daily Last use: today 02/20/2023 Lack of Transportation: No Lack of Food: Never True Current Housing: I Have Housing Concerned About Future Housing: No Difficulty Paying Gas/Electric Bills: No Difficulty Paying for Meds: No Currently Unemployed: No Education: High School Diploma/GED Difficulty w/ Childcare or Family Care: No Spiritual care concerns: No Exam Narrative: General: Awake, somnolent, afebrile, tremulous, in no acute distress. HEENT: PERRL, no rhinorrhea, no post nasal drip, oropharynx clear. Neck: Trachea midline, no JVD, no lymphadenopathy. Cardiovascular: Tachycardic with regular rhythm, no murmurs, rubs or gallops, no peripheral edema. Respiratory: Clear to auscultation bilaterally, no tachypnea, no wheezing, no rhonchi, no rubs, no respiratory distress. Abdomen: Soft, nontender, nondistended, no rebound, no guarding, no peritoneal signs. Musculoskeletal: No joint swelling or deformity, normal muscle tone. Skin: No rashes or petechia, no signs of infection. Neurological: Alert and oriented to person, responds to name, follows minimal commands and answers questions by nodding. No focal deficits appreciated at this time, GCS 15. Course Vital Signs Vital signs: Vital Signs Temperature 97.0 F L 05/19/23 07:15 Pulse Rate 128 H 05/19/23 07:15 Respiratory Rate 26 H 05/19/23 07:15 Blood Pressure 90/53 L 05/19/23 07:15 Pulse Oximetry 95 05/19/23 07:15 Oxygen Delivery Room Air 05/19/23 07:15 Temperature 98.7 F 05/19/23 12:35 Pulse Rate 97 05/19/23 13:30 Respiratory Rate 16 05/19/23 13:30 Blood Pressure 100/80 05/19/23 13:30 Pulse Oximetry 95 05/19/23 13:30 Oxygen Delivery Nasal Cannula 05/19/23 12:34 Oxygen Flow Rate 4 05/19/23 12:35 MDM - Overdose MDM Narrative Medical decision making narrative: The patient was evaluated by myself in the emergency department. History is obtained from patient who is an independent historian along with EMS and physical exam was performed. External medical records were reviewed at this time. IV wa
--- NOTE | 2023-05-19 07:24 | ECG_ITS ---
Measurements Intervals [place] Rate: 108 P: 54 ME: 148 QRS: 58 QRSD: 98 T: 35 QT: 348 QTc: 467 Interpretive Statements SINUS TACHYCARDIA INCOMPLETE RIGHT BUNDLE BRANCH BLOCK ABNORMAL ECG COMPARED TO ECG 02/20/2023 13:56:16 NO SIGNIFICANT CHANGES Electronically Signed On 05-19-2023 8:35:05 ENVIRONMENTAL PROGRAMS MANAGER by James Kramer D.O.
[2023-05-19 07:43] LABS: Hematocrit 49.4 % (42.0-52.0); Hemoglobin 15.3 g/dL (14.0-18.0); Mean Corpuscular Hemoglobin 31.2 pg (26-34); Mean Corpuscular Volume 100.6 fl (80-100); Mean Platelet Volume 10.5 fl (7.4-10.4); Platelet Count Result 414 k/mm3 (150-375); Red Blood Count 4.91 M/mm3 (4.6-6.20); Red Cell Distribution Width 12.6 % (11.5-14.5); White Blood Count 31.9 K/mm3 (4.5-10.0)
[2023-05-19 07:51] LABS: Acetaminophen < 10 ug/mL (10-30); Ethanol < 10 mg/dL (<10); Salicylate < 1.0 mg/dL (2-20)
[2023-05-19 08:01] LABS: Lymphocytes Absolute Manual 1.59 K/mm3 (1.1-4.5); Monocytes Absolute Manual 4.14 K/mm3 (0.1-0.90); Monocytes Percent Manual 13 % (3-9); Neutrophils Percent Manual 82 % (46-73); Platelet Estimate Increased (Adequate); Schistocytes None Seen (NORMAL); Total Cells Counted 100
[2023-05-19 08:02] LABS: Amphetamine Screen Urine Negative (Negative); Barbiturate Screen Urine Negative (Negative); Benzodiazepines Screen Urine Negative (Negative); Cannabinoid Screen Urine Positive (Negative); Cocaine Screen Urine Positive (Negative); Methadone Screen Urine Negative (Negative); Opiate Screen Urine Negative (Negative); Phencyclidine Screen Urine Negative (Negative)
[2023-05-19 08:04] LABS: Appearance Urine Clear (Clear); Bacteria Urine None Seen /hpf; Bilirubin Urine Negative (Negative); Blood Urine Negative (Negative); Color Urine Dark Yellow (Yellow); Glucose Urine UA Negative (Negative); Granular Casts Urine Present /lpf; Ketones Urine Negative (Negative); Leukocyte Esterase Ur Negative LEU/UL (Negative); Nitrate Urine Negative (Negative); Non Pathogenic Casts >20; Protein Urine 1+ mg/dL (Negative); RBC Urine 0-2 /hpf (0-2); Specific Grav Ur 1.022 (1.001-1.035); Squamous Epithelial Cell Urine None seen /hpf (Few); WBC Urine 0-5 /hpf; pH Urine 7.5 (5.0-9.0)
[2023-05-19] MEDS: SODIUM CHLORIDE 0.9% IV 1,000 ML 999 ML IV CONT ×2 (08:04→08:19)
[2023-05-19 08:05] LABS: Glucose Point of Care 49 mg/dl (65-105)
[2023-05-19 08:08] LABS: Add Urine Microscopic? YES
--- NOTE | 2023-05-19 08:10 | PC.NURSE ---
PT WOKE UP AND SAID I'M THIRSTY- CAN I HAVE A DRINK? PT WAS ABLE TO STATE HE TOOK SOME VENLAFAXINE AND 1 WELLBUTRIN ALONG WITH SOME FENTANYL LAST NIGHT AND HUFFED SOME NITROUS. UNABLE TO STATE WHY HE TOOK THE SUBSTANCES. FELL BACK ASLEEP. DR VONDA VILLARREAL MADE AWARE.
[2023-05-19 08:17] LABS: SARS-CoV-2 RNA PCR Negative (Negative)
[2023-05-19 08:34] LABS: Alanine Aminotransferase 68 U/L (6-50); Albumin Level 4.2 g/dL (3.7-5.6); Alkaline Phosphatase 87 U/L (58-237); Anion Gap 14 mmol/L (8-16); Aspartate Amino Transferase 55 U/L (17-59); Bilirubin,Total 0.5 mg/dL (0.2-1.3); Blood Urea Nitrogen 21 mg/dL (8-21); Calcium 8.3 mg/dL (8.9-10.7); Carbon Dioxide 25 mmol/L (22-30); Chloride 99 mmol/L (98-107); Estimated Glomerular Filt Rate 37; Glucose 56 mg/dL (65-110); Potassium 4.2 mmol/L (3.4-5.0); Sodium 138 mmol/L (134-143)
[2023-05-19 09:03] LABS: Glucose Point of Care 45 mg/dl (65-105)
[2023-05-19] MEDS: SODIUM CHLORIDE 0.9% IV 1,000 ML 640 ML IV CONT (09:20)
[2023-05-19] MEDS: DEXTROSE 5% 1,000 ML 1,000 ML 100 ML IV CONT (09:21)
[2023-05-19] MEDS: PIPERACILLIN/TAZ 4.5G/NS 100ML 4.5 GM/100 ML BAG IVPB ×3 (09:26→21:15)
[2023-05-19 09:39] LABS: Creatine Kinase 841 U/L (55-170)
[2023-05-19 10:18] LABS: Glucose Point of Care 89 mg/dl (65-105)
[2023-05-19 10:38] LABS: Reflex Lactic Acid Yes or No Add Lactic
[2023-05-19 11:01] LABS: Lactic Acid 0.8 mmol/L (0.7-2.0)
[2023-05-19 11:04] LABS: Troponin I 0.089 ng/mL (0.000-0.034)
[2023-05-19] MEDS: AZITHROMYCIN 500 MG/NS 250 ML 500 MG/250 ML BAG 250 MG IVPB (11:30)
[2023-05-19] MEDS: ONDANSETRON INJ 4 MG/2 ML VIAL IV PUSH (12:34)
[2023-05-19 13:26] LABS: Glucose Point of Care 114 mg/dl (65-105)
--- NOTE | 2023-05-19 14:15 | PM.IMHP ---
H&P: HPI History of Present Illness Date/Time: 05/19/23 14:15 Chief Complaint: Suspected overdose. Narrative: This is a 17-year-old male with history of polysubstance abuse (marijuana, heroin, cocaine, fentanyl, huffing) who presented to the emergency department via EMS from home for evaluation of suspected overdose. The patient provides the following history; mother provides additional information with the patient's permission. This morning the patient's mother heard him moaning and screaming stairs so she called 911. On EMS he was apparently not very responsive and was administered Narcan with reported improvement in mentation. He found to be hypoglycemic and was also administered oral glucose. Patient tells me that he did cocaine and fentanyl at about 03:30. His temperature was 96.9? F on arrival and he was placed under a Suzanne Hugger. Blood pressures has been as low as 73/48. His labs were significant for a WBC count of 31.9, creatinine 2.30, lactic acid 6.0, ALT 68, total creatinine kinase 841, troponin 0.089. Drug screen was positive for cocaine and cannabinoids. CT of the chest, abdomen, and pelvis showed findings suggestive of aspiration pneumonitis and possible pneumonia and he was given a dose of Zosyn. He received IV fluid boluses with normalization of his lactic acid level and improvement in blood pressures. He is being admitted in this setting with acute kidney injury and aspiration pneumonitis/pneumonia. He denies intentional overdose and reports he was just trying to get high. At the time my evaluation he is resting comfortably and has no complaints. He specifically denies fever, chills, sweats, cold and flu symptoms, chest pain, pleuritic pain, shortness of breath, muscle aches, abdominal pain, nausea, vomiting, and diarrhea. Review of Systems Review of Systems: Twelve systems were reviewed and are negative except for as per HPI. [facility] Past Medical History Medical History Depression Polysubstance abuse Family History Family History Father Depression Other Adopted Unknown family medical history Social History Social History (Updated 05/19/23 @ 21:32 by Caro G Gerling, PA-C) Social History: Code status: Full code. Smoking status: Current every day smoker Tobacco type: e-cigarettes/vaping Alcohol intake: current Drinks per week: 10 Substance use: current Substance use type: marijuana, crack/cocaine, amphetamines, opiates, painkillers and other Other substance usage details: Nitrous Last use: 05/18/23 Do You Feel Safe in your Home?: Yes Lack of Transportation: No Lack of Food: Never True Current Housing: I Have Housing Concerned About Future Housing: No Difficulty Paying Gas/Electric Bills: No Difficulty Paying for Meds: No Currently Unemployed: No Education: High School Diploma/GED Difficulty w/ Childcare or Family Care: No Spiritual care concerns: No Meds Home Medications and Allergies Home Medications Medication Instructions Recorded Confirmed Type quetiapine 100 mg tablet 100 mg PO QHS 02/20/23 05/19/23 History venlafaxine 37.5 mg 37.5 mg PO DAILY 02/20/23 05/19/23 History capsule,extended release 24 hr bupropion HCl 150 mg 24 hr tablet, 150 mg PO DAILY 05/19/23 05/19/23 History extended release Allergies Allergy/AdvReac Type Severity Reaction Status Date / Time fruit peel Allergy Intermediate Other Uncoded 05/19/23 16:14 Nut Peeling Allergy Intermediate Other Uncoded 05/19/23 16:13 Vital Signs Vital Signs - 24 hr 05/19/23 07:15 05/19/23 07:45 05/19/23 08:19 Temperature 97.0 F L 96.9 F L Pulse Rate 128 H 110 H 108 H Respiratory Rate 26 H 18 Blood Pressure 90/53 L 91/46 L Pulse Oximetry 95 95 Oxygen Delivery Room Air Oxygen Flow Rate 05/19/23 08:19 05/19/23 08:31 05/19/23 08:46 Temperature Puls
[2023-05-19 16:52] LABS: Glucose Point of Care 98 mg/dl (65-105)
[2023-05-19 18:10] LABS: Anion Gap 7 mmol/L (8-16); Blood Urea Nitrogen 19 mg/dL (8-21); Calcium 8.3 mg/dL (8.9-10.7); Carbon Dioxide 24 mmol/L (22-30); Chloride 102 mmol/L (98-107); Estimated CRCL calculation 93 ml/min; Estimated Glomerular Filt Rate > 60; Glucose 99 mg/dL (65-110); Potassium 5.1 mmol/L (3.4-5.0); Sodium 133 mmol/L (134-143)
[2023-05-19 18:23] LABS: Troponin I 0.569 ng/mL (0.000-0.034)
[2023-05-19 18:37] LABS: Creatine Kinase 9463 U/L (55-170)
[2023-05-19 21:29] LABS: Glucose Point of Care 103 mg/dl (65-105)
[2023-05-19] MEDS: SODIUM BICARBONATE 8.4% 150 MEQ in DEXTROSE 5% 1,000 ML 950 ML 100 MEQ IV CONT (21:42)
[2023-05-20] VITALS (15 sets, daily range): BP systolic 108–132; BP diastolic 68–96; PULSE 72–94; RESP 16–20; TEMP 36.5–37; O2SAT 95–100
[2023-05-20 04:02] LABS: Basophils Percent Auto 0.2 % (0.2-1.2); Eosinophils Absolute Auto 0.1 K/mm3 (0-0.3); Eosinophils Percent Auto 0.6 % (0-4.4); Hematocrit 36.9 % (42.0-52.0); Hemoglobin 12.4 g/dL (14.0-18.0); Immature Granulocyte Absolute 0.04 K/mm3 (0.00-0.031); Immature Granulocyte Percent A 0.3 % (0-0.5); Lymphocytes Absolute Auto 2.44 K/mm3 (0.9-3.2); Lymphocytes Percent Auto 19.7 % (18.3-44.2); Mean Corpuscular HGB Conc 33.6 g/dl (32-36); Mean Corpuscular Hemoglobin 31.3 pg (26-34); Mean Corpuscular Volume 93.2 fl (80-100); Mean Platelet Volume 10.5 fl (7.4-10.4); Monocytes Absolute Auto 1.2 K/mm3 (0.1-0.6); Monocytes Percent Auto 9.7 % (2.6-8.5); Neutrophils Absolute Auto 8.6 K/mm3 (1.3-6.7); Neutrophils Percent Auto 69.5 % (45.5-73.1); Platelet Count Result 288 k/mm3 (150-375); Red Blood Count 3.96 M/mm3 (4.6-6.20); Red Cell Distribution Width 12.5 % (11.5-14.5); White Blood Count 12.4 K/mm3 (4.5-10.0)
[2023-05-20 04:23] LABS: Lactic Acid Reflex 0.9 mmol/L (0.7-2.0)
[2023-05-20 04:32] LABS: Alanine Aminotransferase 128 U/L (6-50); Albumin Level 3.2 g/dL (3.7-5.6); Alkaline Phosphatase 73 U/L (58-237); Anion Gap 4 mmol/L (8-16); Aspartate Amino Transferase 311 U/L (17-59); Bilirubin,Total 0.5 mg/dL (0.2-1.3); Blood Urea Nitrogen 15 mg/dL (8-21); Calcium 8.2 mg/dL (8.9-10.7); Carbon Dioxide 28 mmol/L (22-30); Chloride 103 mmol/L (98-107); Estimated CRCL calculation 119 ml/min; Estimated Glomerular Filt Rate > 60; Glucose 93 mg/dL (65-110); Potassium 3.9 mmol/L (3.4-5.0); Sodium 135 mmol/L (134-143)
[2023-05-20] MEDS: PIPERACILLIN/TAZ 4.5G/NS 100ML 4.5 GM/100 ML BAG IVPB ×2 (05:00→09:27)
[2023-05-20 05:11] LABS: Creatine Kinase 10678 U/L (55-170)
[2023-05-20 06:28] LABS: Glucose Point of Care 106 mg/dl (65-105)
[2023-05-20 07:45] LABS: Glucose Point of Care 98 mg/dl (65-105)
[2023-05-20] MEDS: SODIUM BICARBONATE 8.4% 150 MEQ in DEXTROSE 5% 1,000 ML 950 ML 100 MEQ IV CONT (08:46)
[2023-05-20] MEDS: ENOXAPARIN 40 MG/0.4 ML SYRINGE SUB-Q (08:46)
[2023-05-20 10:07] LABS: Glucose Point of Care 96 mg/dl (65-105)
--- NOTE | 2023-05-20 12:12 | PM.IMPN ---
Progress Note: A&P Assessment and Plan (1) Shock: Code(s): R57.9 - Shock, unspecified Status: Acute Assessment and Plan: Patient was brought to the emergency room after being found down from drug overdose. He admits using cocaine and fentanyl. Blood pressure dropped to 73/48. He was tachycardic. Lactic acid was 6. He acute kidney injury. Was hypoglycemic. He may have had seizure. This condition is much improved. Was educated about the benefits abstain from drug use. Blood pressure stable Continue IV fluids. Diet started. (2) Aspiration pneumonia: Code(s): J69.0 - Pneumonitis due to inhalation of food and vomit Status: Acute Assessment and Plan: CT of the chest, abdomen pelvis showed bilateral predominantly dependent lower lobe infiltrates right greater than left possibly aspiration pneumonia. Assess cardiomegaly as well as discrepancy in the size of the ascending aorta. Please see report for details. He did have a CTA of his chest, abdomen and pelvis which showed no thoracic or abdominal aortic aneurysm or dissection or hematoma. Patient was started on Zosyn. He feels much better. His white count trending downward. Will switch to Augmentin to complete a course (3) Acute kidney injury: Code(s): N17.9 - Acute kidney failure, unspecified Status: Acute Assessment and Plan: Patient has normal baseline renal function. Creatinine 2.3 on admission felt related to drug overdose with hypotension. With IV fluids, renal function has returned to normal. Potassium was mildly elevated 1.25.1 but this has normalized. Follow (4) Rhabdomyolysis: Code(s): M62.82 - Rhabdomyolysis Status: Acute Assessment and Plan: Patient with elevated total creatinine kinase on admission and has climbed to 10.7K. Currently on IV bicarb to alkalinize the urine. Check UA. Monitor creatinine kinase daily. Will change to normal saline once bag is complete. (5) Hypoglycemia: Code(s): E16.2 - Hypoglycemia, unspecified Status: Acute Assessment and Plan: Patient was hypoglycemic in the field. Glucose documented here was 45. He was treated appropriately. This is could have caused a seizure resulting in the rhabdomyolysis and tongue trauma. Glucose is better controlled. Diet has been started. Continue to follow. (6) Elevated troponin: Code(s): R79.89 - Other specified abnormal findings of blood chemistry Status: Acute Assessment and Plan: Troponin elevated on admission has climbed to 0.57. Patient was hospitalized here in February for fentanyl overdose at that time had markedly elevated troponin to 3.9. Echocardiogram at that time was normal. EKG here shows incomplete right bundle branch block with sinus tachycardia but no change from prior. Suspect elevated troponin on this admission related to the rhabdomyolysis. Could also be related to the hypotension from the narcotics and/or occult seizure. Repeat troponin to peak. (7) Overdose of fentanyl: Code(s): T40.411A - Poisoning by fentanyl or fentanyl analogs, accidental (unintentional), initial encounter Status: Acute Assessment and Plan: This is the etiology of the above findings. This was explained to the patient. (8) Polysubstance abuse: Code(s): F19.10 - Other psychoactive substance abuse, uncomplicated Status: Acute Assessment and Plan: Patient was educated about the benefits of staying from drug use. Care coordination to provide information about drug rehab. Plan DVT prophylax -Lovenox Code status -full Subjective Date/time seen: 05/20/23 12:12 Interval history: 17yo male with hx of polysubstance abuse here for drug overdose. Assuming care. Chart reviewed. Patient admits to taking cocaine and fentanyl prior to admission. He denies suicidal or homicidal ideation. He denies feeling depressed or a her wantin
[2023-05-20] MEDS: AMOXICILLIN/CLAVULANATE K 875-125 MG TAB 1 TABLET PO ×2 (12:55→20:06)
[2023-05-20] MEDS: SODIUM CHLORIDE 0.9% IV 1,000 ML 150 ML IV CONT ×2 (12:55→20:06)
[2023-05-20 13:18] LABS: Troponin I 0.478 ng/mL (0.000-0.034)
[2023-05-20 17:30] LABS: Appearance Urine Clear (Clear); Bilirubin Urine Negative (Negative); Blood Urine Negative (Negative); Color Urine Yellow (Yellow); Glucose Urine UA Negative (Negative); Ketones Urine Trace mg/dL (Negative); Leukocyte Esterase Ur Negative LEU/UL (NEGATIVE); Nitrate Urine Negative (Negative); Protein Urine Negative (Negative); Specific Grav Ur 1.013 (1.001-1.035); pH Urine 8.5 (5.0-9.0)
[2023-05-20 18:01] LABS: Add Urine Microscopic? NO
[2023-05-20] MEDS: QUEtiapine FUMARATE 100 MG TABLET PO (23:30)
[2023-05-21] VITALS (10 sets, daily range): BP systolic 116–135; BP diastolic 65–95; PULSE 61–80; RESP 18–25; TEMP 36.9–37.1; O2SAT 98–100
--- NOTE | 2023-05-21 | ECHOL_ITS ---
Patient Info Name: Kike Sears Age: 17 years : 2005 Gender: Male Ht: 73 in Wt: 188 lbs BSA: 2.10 m2 HR: 78 bpm BP: 128 / 83 mmHg Heart Rhythm: Sinus Rhythm Technical Quality: Fair Exam Date: 05/21/2023 1:39 PM Exam Location: Echo Lab Exam Room: ICU Patient Status: Inpatient Admit Date: 05/19/2023 Staff Ordering Physician: Andrew Thompson MD Java Web Engineer: Ashely Carvalho RDCS Attending Provider: Ilda Porter DO Exam Type: CA echo limited Study Info Indications - ELEVATED TROPONINS Limited two-dimensional transthoracic echocardiogram is performed. Summary 1. Limited echo study, no Doppler ordered. 2. Normal left ventricular size and thickness with good contractility of all segments. Ejection fraction 60-65%. Diastolic function indeterminate. 3. Sclerotic aortic valve which is probably trileaflet, with mild aortic insufficiency. 4. Normal sinus rhythm. Left Ventricle Left ventricular chamber dimension is normal. Left ventricular systolic function is normal, estimated at 60-65%. There is no increased left ventricular wall thickness. Left ventricular septal wall motion is normal. The left ventricular diastolic function is indeterminate. Right Ventricle Right ventricular chamber dimension is normal. Right ventricular systolic function is normal. Left Atria Left atrial chamber dimension is normal. Right Atria Right atrial chamber dimension is normal. Aortic Valve The aortic valve is probable trileaflet. There is moderate aortic valve sclerosis. There is no aortic valve stenosis. There is mild aortic valve regurgitation. Pulmonic Valve The pulmonic valve is normal. There is no pulmonic valve stenosis. There is no pulmonic regurgitation. Mitral Valve The mitral valve has normal leaflets. There is no mitral valve stenosis. There is no mitral valve regurgitation. Tricuspid Valve The tricuspid valve leaflets are normal. There is no significant tricuspid valve stenosis. There is no tricuspid valve regurgitation. No pulmonary hypertension, estimated pulmonary arterial systolic pressure is Empty. Pericardium/Pleural The pericardium appears normal. There is no pericardial effusion. Inferior Vena Cava Normal inferior vena cava with >50% collapse upon inspiration consistent with Empty right atrial pressure, Empty. Aorta The aortic root size at the sinus of Valsalva is normal. The prox ascending aorta size is normal. Ventricles Name Value Normal LV Dimensions 2D/MM IVS Diastolic Thickness (2D) 0.9 cm 0.6-1.0 LVID Diastole (2D) 5.1 cm 4.2-5.8 LVIW Diastolic Thickness (2D) 1.0 cm 0.6-1.0 LVID Systole (2D) 3.3 cm 2.5-4.0 LV Mass (2D Cubed) 174.96 g 88.00-224.00 LV Mass Index (2D Cubed) 83 g/m2 49-115 Relative Wall Thickness (2D) 0.39 LV Fractional Shortening/Ejection Fraction 2D/MM LV Fractional Shortening (2D) 35 % 25-43 LV EF (2D Teicholz) 64 % 52-72 LV Diastolic Volume (4C MOD) 133 ml LV EF (4C MOD) 67 % LV Diastolic V
[2023-05-21 05:15] LABS: Basophils Percent Auto 0.3 % (0.2-1.2); Eosinophils Absolute Auto 0.1 K/mm3 (0-0.3); Eosinophils Percent Auto 1.1 % (0-4.4); Hematocrit 38.2 % (42.0-52.0); Hemoglobin 12.7 g/dL (14.0-18.0); Immature Granulocyte Absolute 0.02 K/mm3 (0.00-0.031); Immature Granulocyte Percent A 0.2 % (0-0.5); Lymphocytes Absolute Auto 2.79 K/mm3 (0.9-3.2); Lymphocytes Percent Auto 30.3 % (18.3-44.2); Mean Corpuscular HGB Conc 33.2 g/dl (32-36); Mean Corpuscular Hemoglobin 31.1 pg (26-34); Mean Corpuscular Volume 93.4 fl (80-100); Mean Platelet Volume 10.7 fl (7.4-10.4); Monocytes Absolute Auto 0.9 K/mm3 (0.1-0.6); Monocytes Percent Auto 10.1 % (2.6-8.5); Neutrophils Absolute Auto 5.3 K/mm3 (1.3-6.7); Platelet Count Result 273 k/mm3 (150-375); Red Blood Count 4.09 M/mm3 (4.6-6.20); Red Cell Distribution Width 12.2 % (11.5-14.5); White Blood Count 9.2 K/mm3 (4.5-10.0)
[2023-05-21 05:26] LABS: Alanine Aminotransferase 137 U/L (6-50); Albumin Level 3.1 g/dL (3.7-5.6); Alkaline Phosphatase 75 U/L (58-237); Anion Gap 3 mmol/L (8-16); Aspartate Amino Transferase 260 U/L (17-59); Bilirubin,Total 0.6 mg/dL (0.2-1.3); Blood Urea Nitrogen 9 mg/dL (8-21); Calcium 8.6 mg/dL (8.9-10.7); Carbon Dioxide 27 mmol/L (22-30); Chloride 108 mmol/L (98-107); Estimated CRCL calculation 146 ml/min; Estimated Glomerular Filt Rate > 60; Glucose 88 mg/dL (65-110); Potassium 4.1 mmol/L (3.4-5.0); Sodium 138 mmol/L (134-143)
[2023-05-21 06:12] LABS: Creatine Kinase 6911 U/L (55-170)
[2023-05-21] MEDS: SODIUM CHLORIDE 0.9% IV 1,000 ML 150 ML IV CONT ×3 (08:38→21:44)
[2023-05-21] MEDS: ENOXAPARIN 40 MG/0.4 ML SYRINGE SUB-Q (08:38)
[2023-05-21] MEDS: AMOXICILLIN/CLAVULANATE K 875-125 MG TAB 1 TABLET PO ×2 (08:38→21:44)
--- NOTE | 2023-05-21 10:51 | PM.IMPN ---
Progress Note: A&P Assessment and Plan (1) Shock: Code(s): R57.9 - Shock, unspecified Status: Acute Assessment and Plan: Patient was brought to the emergency room after being found down from drug overdose. He admits using cocaine and fentanyl. Blood pressure dropped to 73/48. He was tachycardic. Lactic acid was 6. He had acute kidney injury and was hypoglycemic. He may have had seizure. CXR showing CMG, pulm vascular congestion and patchy bilateral pulmonary infiltrates with edema. [place] patient was in impending cardiovascular collapse. His condition is much improved. He was educated about the benefits of abstaining from drug use. Blood pressure stable Continue IV fluids for the rhabdo. Tele showing run of NSVT. (2) Aspiration pneumonia: Code(s): J69.0 - Pneumonitis due to inhalation of food and vomit Status: Acute Assessment and Plan: CT of the chest, abdomen pelvis showed bilateral predominantly dependent lower lobe infiltrates right greater than left possibly aspiration pneumonia. Assess cardiomegaly as well as discrepancy in the size of the ascending aorta. Please see report for details. He did have a CTA of his chest, abdomen and pelvis which showed no thoracic or abdominal aortic aneurysm or dissection or hematoma. Patient was started on Zosyn. He feels much better. His white count normal now Changed to Augmentin 05/20 to complete a course (3) Rhabdomyolysis: Code(s): M62.82 - Rhabdomyolysis Status: Acute Assessment and Plan: Patient with elevated total creatinine kinase on admission and has climbed to 10.7K. He was on IV bicarb to alkalinize the urine. Fluids changed to NS at higher rate. TCK down to 6.9K. Monitor creatinine kinase daily. (4) Acute kidney injury: Code(s): N17.9 - Acute kidney failure, unspecified Status: Acute Assessment and Plan: Patient has normal baseline renal function. Creatinine 2.3 on admission felt related to drug overdose with hypotension. With IV fluids, renal function has returned to normal. Potassium was mildly elevated but this has normalized. Follow (5) Hypoglycemia: Code(s): E16.2 - Hypoglycemia, unspecified Status: Acute Assessment and Plan: Patient was hypoglycemic in the field. Glucose documented here was 45. He was treated appropriately. This is could have caused a seizure resulting in the rhabdomyolysis and tongue trauma. Glucose is better controlled. Diet has been started. Continue to follow. (6) Elevated troponin: Code(s): R79.89 - Other specified abnormal findings of blood chemistry Status: Acute Assessment and Plan: Troponin elevated on admission has climbed to 0.57. Patient was hospitalized here in February for fentanyl overdose at that time had markedly elevated troponin to 3.9. Echocardiogram at that time was normal. EKG here shows incomplete right bundle branch block with sinus tachycardia but no change from prior. Suspect elevated troponin on this admission related to the rhabdomyolysis. Could also be related to the hypotension from the narcotics and/or occult seizure. Imaging showing CMG but felt related to cardiac strain from the impending cardiopulm collapse. Check limited Echo to assess EF. Change mag level given the NSVT this morning (7) Overdose of fentanyl: Code(s): T40.411A - Poisoning by fentanyl or fentanyl analogs, accidental (unintentional), initial encounter Status: Acute Assessment and Plan: This is the etiology of the above findings. This was explained to the patient. (8) Polysubstance abuse: Code(s): F19.10 - Other psychoactive substance abuse, uncomplicated Status: Acute Assessment and Plan: Patient was educated about the benefits of staying from drug use. Care coordination to provide information about drug rehab. Spoke with mother with patient permission. [facility]
[2023-05-21 12:18] LABS: Magnesium 1.9 mg/dL (1.6-2.3); Phosphorus 2.6 mg/dL (2.5-4.5)
[2023-05-21] MEDS: QUEtiapine FUMARATE 100 MG TABLET PO (21:44)
[2023-05-22] VITALS (7 sets, daily range): BP systolic 110–136; BP diastolic 68–85; PULSE 48–77; RESP 16–20; TEMP 36.1–36.9; O2SAT 99–100
[2023-05-22] MEDS: SODIUM CHLORIDE 0.9% IV 1,000 ML 150 ML IV CONT ×3 (03:47→17:36)
[2023-05-22 04:11] LABS: Basophils Percent Auto 0.4 % (0.2-1.2); Eosinophils Absolute Auto 0.2 K/mm3 (0-0.3); Eosinophils Percent Auto 2.3 % (0-4.4); Hematocrit 37.8 % (42.0-52.0); Immature Granulocyte Absolute 0.01 K/mm3 (0.00-0.031); Immature Granulocyte Percent A 0.1 % (0-0.5); Lymphocytes Absolute Auto 3.38 K/mm3 (0.9-3.2); Lymphocytes Percent Auto 43.1 % (18.3-44.2); Mean Corpuscular HGB Conc 34.4 g/dl (32-36); Mean Corpuscular Hemoglobin 31.3 pg (26-34); Mean Corpuscular Volume 90.9 fl (80-100); Mean Platelet Volume 10.4 fl (7.4-10.4); Monocytes Absolute Auto 0.8 K/mm3 (0.1-0.6); Monocytes Percent Auto 9.8 % (2.6-8.5); Neutrophils Absolute Auto 3.5 K/mm3 (1.3-6.7); Neutrophils Percent Auto 44.3 % (45.5-73.1); Platelet Count Result 302 k/mm3 (150-375); Red Blood Count 4.16 M/mm3 (4.6-6.20); Red Cell Distribution Width 12.1 % (11.5-14.5); White Blood Count 7.9 K/mm3 (4.5-10.0)
[2023-05-22 04:54] LABS: Alanine Aminotransferase 114 U/L (6-50); Alkaline Phosphatase 79 U/L (58-237); Anion Gap 5 mmol/L (8-16); Aspartate Amino Transferase 161 U/L (17-59); Bilirubin,Total 0.4 mg/dL (0.2-1.3); Blood Urea Nitrogen 6 mg/dL (8-21); Calcium 8.5 mg/dL (8.9-10.7); Carbon Dioxide 24 mmol/L (22-30); Chloride 111 mmol/L (98-107); Creatine Kinase 3167 U/L (55-170); Estimated CRCL calculation 146 ml/min; Estimated Glomerular Filt Rate > 60; Glucose 95 mg/dL (65-110); Magnesium 1.6 mg/dL (1.6-2.3); Potassium 3.5 mmol/L (3.4-5.0); Sodium 140 mmol/L (134-143)
--- NOTE | 2023-05-22 09:04 | PM.IMPN ---
Progress Note: A&P Assessment and Plan (1) Shock: Code(s): R57.9 - Shock, unspecified Status: Acute Assessment and Plan: Patient was brought to the emergency room after being found down from drug overdose. He admits using cocaine and fentanyl. Blood pressure dropped to 73/48. He was tachycardic. Lactic acid was 6. He had acute kidney injury and was hypoglycemic. He may have had seizure. CXR showing CMG, pulm vascular congestion and patchy bilateral pulmonary infiltrates with edema. [place] patient was in impending cardiovascular collapse. His condition is much improved. He was educated about the benefits of abstaining from drug use. Blood pressure stable Continue IV fluids for the rhabdo. (2) Aspiration pneumonia: Code(s): J69.0 - Pneumonitis due to inhalation of food and vomit Status: Acute Assessment and Plan: CT of the chest, abdomen pelvis showed bilateral predominantly dependent lower lobe infiltrates right greater than left possibly aspiration pneumonia. Assess cardiomegaly as well as discrepancy in the size of the ascending aorta. Please see report for details. He did have a CTA of his chest, abdomen and pelvis which showed no thoracic or abdominal aortic aneurysm or dissection or hematoma. Patient was started on Zosyn. He feels much better. His white count normal now Changed to Augmentin 05/20 to complete a course (3) Rhabdomyolysis: Code(s): M62.82 - Rhabdomyolysis Status: Acute Assessment and Plan: Patient with elevated total creatinine kinase on admission and has climbed to 10.7K. He was on IV bicarb to alkalinize the urine. Fluids changed to NS at higher rate. TCK down to 3.2K. LFTs are trending downward. Will check HIV and hepatitis Monitor creatinine kinase daily. Check UA tomorrow. (4) Acute kidney injury: Code(s): N17.9 - Acute kidney failure, unspecified Status: Acute Assessment and Plan: Patient has normal baseline renal function. Creatinine 2.3 on admission felt related to drug overdose with hypotension. With IV fluids, renal function has returned to normal. Potassium was mildly elevated but this has normalized. Follow (5) Hypoglycemia: Code(s): E16.2 - Hypoglycemia, unspecified Status: Acute Assessment and Plan: Patient was hypoglycemic in the field. Glucose documented here was 45. He was treated appropriately. This is could have caused a seizure resulting in the rhabdomyolysis and tongue trauma. Glucose is better controlled. Diet has been started. Continue to follow. (6) Elevated troponin: Code(s): R79.89 - Other specified abnormal findings of blood chemistry Status: Acute Assessment and Plan: Patient was hospitalized here in February 2023 for fentanyl overdose and had markedly elevated troponin to 3.9. Echo at that time was normal. Troponin elevated on admission has climbed to 0.57. Imaging here showing CMG but felt related to cardiac strain from the impending cardiopulmonary collapse. EKG here shows incomplete right bundle branch block with sinus tachycardia but no change from prior. Limited Echo showing EF of 60-65% indeterminate diastolic function. He did have a sclerotic aortic valve with mild aortic insufficiency. Suspect elevated troponin on this admission related to the rhabdomyolysis. Could also be related to the hypotension from the narcotics and/or occult seizure. (7) Overdose of fentanyl: Code(s): T40.411A - Poisoning by fentanyl or fentanyl analogs, accidental (unintentional), initial encounter Status: Acute Assessment and Plan: This is the etiology of the above findings. This was explained to the patient. (8) Polysubstance abuse: Code(s): F19.10 - Other psychoactive substance abuse, uncomplicated Status: Acute Assessment and Plan: Patient was educated about the benefits of staying from drug use.
[2023-05-22] MEDS: FUROSEMIDE INJ 40 MG/4 ML VIAL 20 MG IV PUSH (09:06)
[2023-05-22] MEDS: ENOXAPARIN 40 MG/0.4 ML SYRINGE SUB-Q (09:06)
[2023-05-22] MEDS: AMOXICILLIN/CLAVULANATE K 875-125 MG TAB 1 TABLET PO ×2 (09:06→19:54)
[2023-05-22 10:09] LABS: HIV 1/2 Ab P24 Ag Result Negative (Negative)
[2023-05-22 10:35] LABS: Hepatitis B Surface Antigen Negative (Negative)
[2023-05-22 10:43] LABS: Hepatitis C Virus Antibody Negative (Negative)
[2023-05-22] MEDS: buPROPion HCL XL (24 HR) 150 MG TABCR PO (10:43)
[2023-05-22 10:49] LABS: HAV RESULT Negative (Negative); Hepatitis B Core IgM Result Negative (Negative)
[2023-05-22 12:24] LABS: Mycoplasma IgM Antibody Titer 792 U/mL (<770)
[2023-05-22 12:46] LABS: Glucose Point of Care 40 mg/dl (65-105)
[2023-05-22 14:26] LABS: Pneumococcal Antigen Urine Not Detected (Not Detected)
--- NOTE | 2023-05-22 15:41 | PC.NURSE ---
This patient, Kike Sears, arrived to unit ([facility]) at 1540, per wheelchair.
--- NOTE | 2023-05-22 15:43 | PC.NURSE ---
This patient, Kike Sears, was transferred to [[id number] ] on 05/22/23 at 1540. Personal belongings sent with patient. Report given to [Alina VALENTIN ]. Appropriate documentation sent with patient.
[2023-05-22] MEDS: QUEtiapine FUMARATE 100 MG TABLET PO (19:53)
[2023-05-23] MEDS: SODIUM CHLORIDE 0.9% IV 1,000 ML 150 ML IV CONT (01:30)
[2023-05-23 05:38] LABS: Alanine Aminotransferase 95 U/L (6-50); Albumin Level 3.3 g/dL (3.7-5.6); Alkaline Phosphatase 67 U/L (58-237); Anion Gap 6 mmol/L (8-16); Aspartate Amino Transferase 108 U/L (17-59); Bilirubin,Total 0.5 mg/dL (0.2-1.3); Blood Urea Nitrogen 6 mg/dL (8-21); Calcium 8.6 mg/dL (8.9-10.7); Carbon Dioxide 26 mmol/L (22-30); Chloride 110 mmol/L (98-107); Creatine Kinase 1264 U/L (55-170); Estimated CRCL calculation 131 ml/min; Estimated Glomerular Filt Rate > 60; Glucose 91 mg/dL (65-110); Potassium 3.6 mmol/L (3.4-5.0); Sodium 142 mmol/L (134-143)
[2023-05-23 06:00] VITALS: BP 130/69; PULSE 53; RESP 14; TEMP 36.2; O2SAT 98
[2023-05-23 07:54] VITALS: BP 123/70; PULSE 55; RESP 16; TEMP 36.4; O2SAT 97
[2023-05-23] MEDS: AMOXICILLIN/CLAVULANATE K 875-125 MG TAB 1 TABLET PO (09:24)
[2023-05-23] MEDS: buPROPion HCL XL (24 HR) 150 MG TABCR PO (09:24)
[2023-05-23] MEDS: FUROSEMIDE INJ 40 MG/4 ML VIAL 20 MG IV PUSH (09:24)
[2023-05-23 09:29] LABS: Add Urine Microscopic? NO; Appearance Urine Clear (Clear); Bilirubin Urine Negative (Negative); Blood Urine Negative (Negative); Color Urine Yellow (Yellow); Glucose Urine UA Negative (Negative); Ketones Urine Trace mg/dL (Negative); Leukocyte Esterase Ur Negative LEU/UL (NEGATIVE); Nitrate Urine Negative (Negative); Protein Urine Negative (Negative); Specific Grav Ur 1.018 (1.001-1.035); Urobilinogen Urine 0.2 mg/dL (<2.0); pH Urine 6.5 (5.0-9.0)
--- NOTE | 2023-05-23 10:14 | PM.DS ---
DS: Admitting Diagnosis Discharge Date 05/23/23 Admitting Diagnosis Suspected overdose DS: Discharge Diagnosis Discharge Diagnosis (1) Shock: Code(s): R57.9 - Shock, unspecified Status: Acute (2) Aspiration pneumonia: Code(s): J69.0 - Pneumonitis due to inhalation of food and vomit Status: Acute (3) Rhabdomyolysis: Code(s): M62.82 - Rhabdomyolysis Status: Acute (4) Acute kidney injury: Code(s): N17.9 - Acute kidney failure, unspecified Status: Acute (5) Hypoglycemia: Code(s): E16.2 - Hypoglycemia, unspecified Status: Acute (6) Elevated troponin: Code(s): R79.89 - Other specified abnormal findings of blood chemistry Status: Acute (7) Overdose of fentanyl: Code(s): T40.411A - Poisoning by fentanyl or fentanyl analogs, accidental (unintentional), initial encounter Status: Acute (8) Polysubstance abuse: Code(s): F19.10 - Other psychoactive substance abuse, uncomplicated Status: Acute DS: Summary Hospital Course Reason for hospitalization: 17yo male with hx of polysubstance abuse here for drug overdose. Please see H&P for details. Hospital Course: Patient was brought to the emergency room after being found down from drug overdose.? He admits to using cocaine and fentanyl.? UDS was positive for cocaine and cannabinoids. Blood pressure dropped to 73/48.? He was tachycardic.? Lactic acid was 6.? He had acute kidney injury and was hypoglycemic.? He may have had a seizure. CXR showing CMG, pulm vascular congestion and patchy bilateral pulmonary infiltrates with edema. [place] patient was in impending cardiovascular collapse. CT of the chest, abdomen and pelvis showed bilateral predominantly dependent lower lobe infiltrates right greater than left possibly aspiration pneumonia.?There was a discrepancy in the size of the ascending aorta.? Please see report for details.? He did have a CTA of his chest, abdomen and pelvis which showed no thoracic or abdominal aortic aneurysm or dissection or hematoma. Patient was started on Zosyn and transitioned to [place]. Sputum Cx grew Group C Strept. Mycoplasma IgM elevated at 792 of unclear significance. COVID negative. BCx remained negative. His WBC was 31K and trended down quickly to normal. Patient has normal baseline renal function.? Creatinine 2.3 on admission felt related to drug overdose with hypotension and/or rhabdomyolysis. With IV fluids, renal function has returned to normal.?Potassium was mildly elevated but this has normalized. Patient was hypoglycemic in the field.? Glucose documented here was 45.? He was treated appropriately.? This is could have caused a seizure resulting in the rhabdomyolysis and tongue trauma.? Glucose is better controlled.? Diet has been started and he is able to maintain a normal glucose value. Patient was hospitalized here in February 2023 for fentanyl overdose and had markedly elevated troponin to 3.9.? Echo at that time was normal.?Troponin elevated on this admission to 0.57.?Imaging here showing CMG but felt related to cardiac strain from the impending cardiopulmonary collapse. EKG here shows incomplete right bundle branch block with sinus tachycardia but no change from prior.?Limited Echo showing EF of 60-65% indeterminate diastolic function.? He did have a sclerotic aortic valve with mild aortic insufficiency. Suspect elevated troponin on this admission related to the HoTN, narcotics, possible seizure and/or rhabdomyolysis.?Patient with elevated total creatinine kinase on admission as well and climbed to 10.7K.? He was on IV bicarb to alkalinize the urine then changed to IV fluids. CK down to 1.2K. UA showing no blood. LFTs are trending downward.? Hepatitis panel negative. HIV pending. His condition is much improved.? He was educated about the benefits of abstaining from drug use. Care coordination provided information about drug rehab. Plan for drug rehab under his own voliti
--- NOTE | 2023-05-23 13:45 | PC.NURSE ---
Educated patient per Juan Pablo that mother must take him directly to rehab he is going to after discharge. No stops. Verified with family that they are able to do over the phone evaluation in the car, as Juan Pablo told me that someone would have to come here and evaluate patient. Patient may do evaluation by telephone per patient's mother.
[2023-05-24 06:48] LABS: Legionella pneumophila Ag Ur Not Detected (Not Detected)
== END 2023-05-23 14:00 | disposition other institution (70) | DRG 917 ==
LOC: ANHED 13:49 → ANHICU 15:14 → ANH2MED 05-23 10:28 → ANHICU 05-25 16:10
PROVIDERS: Physician Assistant; Admitting Provider Student in an Organized Health Care Education/Training Program; Emergency Provider Emergency Medicine; PCP Hospitalist; Visit Provider Internal Medicine
DX: T40.5X1A Poisoning by cocaine, accidental (unintentional), initial encounter (principal); J69.0 Pneumonitis due to inhalation of food and vomit; M62.82 Rhabdomyolysis; N17.9 Acute kidney failure, unspecified; R57.9 Shock, unspecified; T40.411A Poisoning by fentanyl or fentanyl analogs, accidental (unintentional), initial encounter; B95.4 Other streptococcus as the cause of diseases classified elsewhere; F17.290 Nicotine dependence, other tobacco product, uncomplicated; F32.A Depression, unspecified; F19.10 Other psychoactive substance abuse, uncomplicated; R79.89 Other specified abnormal findings of blood chemistry; R56.9 Unspecified convulsions; Z20.822 Contact with and (suspected) exposure to COVID-19
CPT/HCPCS: 36415; 71045; 71250; 71275; 74174; 74176; 80048; 80053; 80074; 80307; 81001; 81003; 82550; 82948; 83605; 83735; 84100; 84443; 84484; 85025; 86703; 86738; 87040; 87070; 87147; 87205; 87449; 87635; 87899; 93005; 93308; 94667; 94668; 96361; 96365; 96367; 96375; 96376; 99285; A9270; G0432; J0456; J1650; J1940; J2405; J2543; J7030; J7070; Q9967